=== PATIENT | female | born 1940 | race Caucasian/White ===

== ENCOUNTER 2017-08-13 09:12 | Emergency (ER) | payer MEDICARE, OTHER ==
--- NOTE | 2017-08-13 09:31 | ER Document Report ---
ED Medical Screen (RME) - General Chief Complaint: Rectal Bleeding Stated Complaint: RECTAL BLEEDING Time Seen by Provider: 08/13/17 09:22 Mode of Arrival: Ambulatory Information source: Patient TRAVEL OUTSIDE OF THE [place] IN LAST 30 DAYS: No - HPI Patient complains to provider of: Rectal bleeding Onset: This morning Notes: 08/13/17 09:30 Patient is a 77-year-old female presenting to the emergency room today complaining of rectal bleeding that started this morning, states she had 3 episodes of bleeding this morning, she is wearing a depends at this time because she continues to have some mild bleeding, she denies any rectal pain, no bowel movement and onset of symptoms, she does report a history of hemorrhoids - Related Data Allergies/Adverse Reactions: amlodipine [Amlodipine] Allergy (Verified 05/23/13 20:01) meclizine [Meclizine] Allergy (Verified 05/23/13 20:01) naproxen [From Naprosyn] Allergy (Verified 05/23/13 20:01) sulfamethoxazole [From Bactrim] Allergy (Verified 05/23/13 20:01) tramadol [Tramadol] Allergy (Verified 05/23/13 20:01) trimethoprim [From Bactrim] Allergy (Verified 05/23/13 20:01) Past Medical History - Past Medical History Cardiac Medical History: Reports: Hx Hypercholesterolemia, Hx Hypertension Pulmonary Medical History: Reports: Hx COPD, Hx Pneumonia Renal/ Medical History: Denies: Hx Peritoneal Dialysis GI Medical History: Reports: Hx Gastroesophageal Reflux Disease Psychiatric Medical History: Reports: Hx Anxiety, Hx Depression Past Surgical History: Reports: Hx Hysterectomy - Immunizations Hx Diphtheria, Pertussis, Tetanus Vaccination: Yes Physical Exam - Vital signs Vitals: Temp Pulse Resp BP Pulse Ox 98.9 F 77 16 211/95 H 94 08/13/17 09:15 08/13/17 09:15 08/13/17 09:15 08/13/17 09:15 08/13/17 09:15 Course - Vital Signs Vital signs: Temp Pulse Resp BP Pulse Ox 98.9 F 77 16 211/95 H 94 08/13/17 09:15 08/13/17 09:15 08/13/17 09:15 08/13/17 09:15 08/13/17 09:15
[2017-08-13 09:47] LABS: ABSOLUTE EOSINOPHILS # (AUTO) 0.1 10^3/uL (0.0-0.6); ABSOLUTE LYMPHOCYTES (AUTO) 0.9 10^3/uL (0.5-4.7); ABSOLUTE MONOCYTES (AUTO) 0.4 10^3/uL (0.1-1.4); BASOPHILS % (AUTO) 0.3 % (0-2); EOSINOPHILS % (AUTO) 0.9 % (0-6); HEMATOCRIT 38.7 % (36.0-47.0); HEMOGLOBIN 13.6 g/dL (12.0-15.5); HGB HCT DIFFERENCE 2.1; LYMPHOCYTES % (AUTO) 12.1 % (13-45); MEAN CORPUSCULAR VOLUME 92 fl (80-97); MONOCYTES % (AUTO) 5.9 % (3-13); RED BLOOD COUNT 4.24 10^6/uL (3.72-5.28); RED CELL DISTRIBUTION WIDTH 13.1 % (11.5-14.0); SEGMENTED NEUTROPHILS % (AUTO) 80.8 % (42-78); WHITE BLOOD COUNT 7.5 10^3/uL (4.0-10.5)
[2017-08-13 09:51] LABS: PARTIAL THROMBOPLASTIN TIME 26.4 SEC (23.5-35.8); PROTHROMBIN TIME 12.7 SEC (11.4-15.4)
[2017-08-13 10:01] LABS: ALANINE AMINOTRANSFERASE 26 U/L (9-52); ALBUMIN 4.3 g/dL (3.5-5.0); ALKALINE PHOSPHATASE 118 U/L (38-126); ANION GAP 10 (5-19); ASPARTATE AMINO TRANSFERASE 23 U/L (14-36); BILIRUBIN,DIRECT 0.3 mg/dL (0.0-0.4); BILIRUBIN,TOTAL 0.6 mg/dL (0.2-1.3); BLOOD UREA NITROGEN 14 mg/dL (7-20); CALCIUM 9.7 mg/dL (8.4-10.2); CARBON DIOXIDE 30 mmol/L (22-30); CHLORIDE 93 mmol/L (98-107); GLUCOSE 152 mg/dL (75-110); SODIUM 133.2 mmol/L (137-145); TOTAL PROTEIN 6.9 g/dL (6.3-8.2)
--- NOTE | 2017-08-13 10:01 | ER Document Report ---
ED General - General Chief Complaint: Rectal Bleeding Stated Complaint: RECTAL BLEEDING Time Seen by Provider: 08/13/17 09:22 Mode of Arrival: Ambulatory Information source: Patient Notes: 77-year-old female no previous rectal bleeding history of hemorrhoid who has been taking Goody powders for hip pain presents with complaints of rectal bleeding. Patient notes she had bowel movement this morning noted large clot dark stool. Patient denies any vomiting, patient had further bowel movement here with large clot, patient does note bright red rectal bleeding as well TRAVEL OUTSIDE OF THE [place] IN LAST 30 DAYS: No - HPI Onset: This morning Onset/Duration: Sudden Quality of pain: Cramping Severity: Mild Pain Level: 1 Associated symptoms: Other Exacerbated by: Denies Relieved by: Denies Similar symptoms previously: No Recently seen / treated by doctor: No - Related Data Allergies/Adverse Reactions: amlodipine [Amlodipine] Allergy (Verified 05/23/13 20:01) meclizine [Meclizine] Allergy (Verified 05/23/13 20:01) naproxen [From Naprosyn] Allergy (Verified 05/23/13 20:01) sulfamethoxazole [From Bactrim] Allergy (Verified 05/23/13 20:01) tramadol [Tramadol] Allergy (Verified 05/23/13 20:01) trimethoprim [From Bactrim] Allergy (Verified 05/23/13 20:01) Home Medications: Current Home Medications Albuterol Sulfate [Proair HFA] 2 puff IN Q6HP PRN 08/13/17 [History] Atorvastatin Calcium [Lipitor 20 mg Tablet] 20 mg PO DAILY 08/13/17 [History] Cyclobenzaprine HCl [Flexeril 5 mg Tablet] 5 mg PO QHS 08/13/17 [History] Fluoxetine HCl [Prozac 20 mg Capsule] 40 mg PO QHS 08/13/17 [History] Lisinopril/Hydrochlorothiazide [Lisinopril-Hctz 20-12.5 mg Tab] 1 tab PO DAILY 08/13/17 [History] Metoprolol Tartrate [Lopressor 50 mg Tablet] 50 mg PO Q12 08/13/17 [History] Omeprazole 40 mg PO DAILY 08/13/17 [History] Past Medical History - General Information source: Patient - Social History Smoking Status: Former Smoker Cigarette use (# per day): No Chew tobacco use (# tins/day): No Smoking Education Provided: No Frequency of alcohol use: None Drug Abuse: None Family History: Hypertension - Past Medical History Cardiac Medical History: Reports: Hx Hypercholesterolemia, Hx Hypertension Pulmonary Medical History: Reports: Hx COPD, Hx Pneumonia Renal/ Medical History: Denies: Hx Peritoneal Dialysis GI Medical History: Reports: Hx Gastroesophageal Reflux Disease Psychiatric Medical History: Reports: Hx Anxiety, Hx Depression Past Surgical History: Reports: Hx Hysterectomy - Immunizations Hx Diphtheria, Pertussis, Tetanus Vaccination: Yes Review of Systems - Review of Systems Notes: REVIEW OF SYSTEMS: CONSTITUTIONAL : Denies fever, chills, or sweats. Denies recent illness. EENT: Denies eye, ear, throat, or mouth pain or symptoms. Denies nasal or sinus congestion or discharge. Denies throat, tongue, or mouth swelling or difficulty swallowing. CARDIOVASCULAR: Denies chest pain. Denies palpitations or racing or irregular heart beat. Denies ankle edema. RESPIRATORY: Denies cough, cold, or chest congestion. Denies shortness of breath, difficulty breathing, or wheezing. GASTROINTESTINAL: Admits to rectal bleeding GENITOURINARY: Denies difficulty urinating, painful urination, burning, frequency, blood in urine, or discharge. FEMALE GENITOURINARY: Denies vaginal bleeding, heavy or abnormal periods, irregular periods. Denies vaginal discharge or odor. MUSCULOSKELETAL: Denies back or neck pain or stiffness. Denies joint pain or swelling. SKIN: Denies rash, lesions or sores. HEMATOLOGIC : Denies easy bruising or bleeding. LYMPHATIC: Denies swollen, enlarged glands. NEUROLOGICAL: Denies confusion or altered mental status. Denies passing out or loss of consciousness. Denies dizziness or lightheadedness. Denies headache. Denies weakness or paralysis or loss of use of either side. Denies problems with gait or speech. Denies sensory loss, numbness, or tingling. Denies seizures. PSYCHIATRIC: Denies anxiety or stress. Denies depression, suicidal ideation, or homicidal ideation. ALL OTHER SYSTEMS REVIEWED AND NEGATIVE. PHYSICAL EXAMINATION: GENERAL: Well-appearing, well-nourished and in no acute distress. HEAD: Atraumatic, normocephalic. EYES: Pupils equal round and reactive to light, extraocular movements intact, conjunctiva are normal. ENT: Nares patent, oropharynx clear without exudates. Moist mucous membranes. NECK: Normal range of motion, supple without lymphadenopathy LUNGS: Breath sounds clear to auscultation bilaterally and equal. No wheezes rales or rhonchi. HEART: Regular rate and rhythm without murmurs ABDOMEN: Soft, nontender, nondistended abdomen. No guarding, no rebound. No masses appreciated. Large amount of rectal bleeding noted Female : deferred Musculoskeletal: Normal range of motion, no pitting or edema. No cyanosis. NEUROLOGICAL: Cranial nerves grossly intact. Normal speech, normal gait. Normal sensory, motor exams PSYCH: Normal mood, normal affect. SKIN: Warm, Dry, normal turgor, no rashes or lesions noted. Dictation was performed using [employer] voice recognition software Physical Exam - Vital signs Vitals: Temp Pulse Resp BP Pulse Ox 98.9 F 77 16 211/95 H 94 08/13/17 09:15 08/13/17 09:15 08/13/17 09:15 08/13/17 09:15 08/13/17 09:15 Course - Re-evaluation Re-evalutation: 08/13/17 10:24 Hemoglobin stable at this time, IV access will be obtained CT will be performed expect admission for rectal bleeding Protonix order placed 08/13/17 12:00 ct consistant with sigmoid bleed, spoke with surgeon he does not do colonscopy, will transfer to [facility] at her request 08/13/17 12:[address] Simon for transfer 08/13/17 12:29 [facility] accepts transfer 08/13/17 14:21 Patient's repeat hemoglobin notes mild decrease 08/13/17 14:25 Patient refuses to go anywhere else will await transport - Vital Signs Vital signs: Temp Pulse Resp BP Pulse Ox 98.9 F 77 17 148/79 H 96 08/13/17 09:15 08/13/17 09:15 08/13/17 13:00 08/13/17 12:01 08/13/17 13:00 - Laboratory Result Diagrams: 08/13/17 12:50 08/13/17 09:40 Laboratory results interpreted by me: 08/13/17 08/13/17 09:40 09:40 Seg Neutrophils % 80.8 H Lymphocytes % 12.1 L Sodium 133.2 L Chloride 93 L Glucose 152 H Discharge - Discharge Clinical Impression: Hypertensive urgency, Anxiety GI bleed Qualifiers: GI bleed type/associated pathology: unspecified gastrointestinal hemorrhage type Qualified Code(s): K92.2 - Gastrointestinal hemorrhage, unspecified Condition: Stable Disposition: [facility]
[2017-08-13] MEDS ORDERED: PANTOPRAZOLE SODIUM 40 MG VIAL IV ONE (10:22)
[2017-08-13] MEDS ORDERED: PANTOPRAZOLE SODIUM 40 MG VIAL IV PRN (10:28)
--- NOTE | 2017-08-13 12:05 | RADIOLOGY REPORT (SQ) ---
EXAM DESCRIPTION: CT ABD/PELVIS WITH IV ONLY COMPLETED DATE/TIME: 08/13/2017 10:57 am REASON FOR STUDY: rectal bleeding COMPARISON: CT abdomen pelvis 09/09/2011, 05/11/2011 TECHNIQUE: CT scan of the abdomen and pelvis performed using helical scanning technique with dynamic intravenous contrast injection. No oral contrast. Images reviewed with lung, soft tissue, and bone windows. Reconstructed coronal and sagittal MPR images reviewed. Delayed images for evaluation of the urinary system also acquired. All images stored on PACS. All CT scanners at this facility use dose modulation, iterative reconstruction, and/or weight based d osing when appropriate to reduce radiation dose to as low as reasonably achievable (ALARA). [facility]: Dose Right [facility]: CareDose [facility]: Dose Right [facility]: Teradose 4D [facility]: [employer] CONTRAST TYPE AND DOSE: contrast/concentration: Isovue 370.00 mg/ml; Total Contrast Delivered: 65.0 ml; Total Saline Delivered: 65.0 ml RENAL FUNCTION: Creatinine 0.8 RADIATION DOSE: Up-to-date CT equipment and radiation dose reduction techniques were employed. CTDIv ol: 7.4 - 10.5 mGy. DLP: 888 mGy-cm.. LIMITATIONS: None. FINDINGS: Activity arterial extravasation of IV contrast is seen into the lumen of the distal descen ding/proximal sigmoid colon on axial images 65 through 70. This report was called to Dr. Camara LOWER CHEST: No significant findings. No nodules or infiltrates. LIVER: Normal size. No masses. No dilated ducts. SPLEEN: Normal size. No focal lesions. PANCREAS: No masses. No significant calcifications. No adjacent inflammation or peripancreatic fluid collections. Pancreatic duct not dilated. GALLBLADDER: No identified stones by CT criteria. No inflammatory changes to suggest cholecystitis. ADRENAL GLANDS: No significant masses or asymmetry. RIGHT KIDNEY AND URETER: No solid masses. Multiple cysts, largest is 2 cm right lower pole kidney. No significant calcifications. No hydronephrosis or hydroureter. LEFT KIDNEY AND URETER: No solid masses. Multiple 1 cm or less cortical cysts. No significant calci fications. No hydronephrosis or hydroureter. AORTA AND VESSELS: No aneurysm. No dissection. Renal arteries, SMA, celiac without stenosis. RETROPERITONEUM: No retroperitoneal adenopathy, hemorrhage or masses. BOWEL AND PERITONEAL CAVITY: No bowel obstruction. Descending and sigmoid colon diverticuli without CT signs of acute diverticulitis. APPENDIX: Surgically absent PELVIS: No mass. No free fluid. Normal bladder. Post hysterectomy ABDOMINAL WALL: No masses. No hernias. BONES: Degenerative changes lumbar spine. OTHER: No other significant finding. IMPRESSION: Active extravasation of contrast from GI bleeding in the distal descending/ proximal sig moid colon. TECHNICAL DOCUMENTATION: JOB ID: [id number] Quality ID # [id number]: Final reports with documentation of one or more dose reduction techniques (e.g., Au tomated exposure control, adjustment of the mA and/or kV according to patient size, use of iterative reconstruction technique) 2010 [employer]- All Rights Reserved
[2017-08-13] MEDS ORDERED: NORMAL SALINE 1000 ML 1,000 ML IV ONE (12:28)
[2017-08-13] MEDS ORDERED: LORAZEPAM INJ 2 MG/1 ML VIAL IV ONE (12:55)
[2017-08-13 12:59] LABS: ABSOLUTE BASOPHILS # (AUTO) 0.1 10^3/uL (0.0-0.2); ABSOLUTE EOSINOPHILS # (AUTO) 0.1 10^3/uL (0.0-0.6); ABSOLUTE LYMPHOCYTES (AUTO) 1.5 10^3/uL (0.5-4.7); ABSOLUTE MONOCYTES (AUTO) 0.8 10^3/uL (0.1-1.4); ABSOLUTE NEUT (AUTO) 7.8 10^3/uL (1.7-8.2); BASOPHILS % (AUTO) 0.7 % (0-2); EOSINOPHILS % (AUTO) 0.5 % (0-6); HEMATOCRIT 37.1 % (36.0-47.0); HEMOGLOBIN 12.9 g/dL (12.0-15.5); HGB HCT DIFFERENCE 1.6; LYMPHOCYTES % (AUTO) 14.8 % (13-45); MEAN CORPUSCULAR HEMOGLOBIN 31.8 pg (27.0-33.4); MEAN CORPUSCULAR HGB CONC 34.7 g/dL (32.0-36.0); MEAN CORPUSCULAR VOLUME 92 fl (80-97); MONOCYTES % (AUTO) 7.9 % (3-13); RED BLOOD COUNT 4.05 10^6/uL (3.72-5.28); SEGMENTED NEUTROPHILS % (AUTO) 76.1 % (42-78); WHITE BLOOD COUNT 10.2 10^3/uL (4.0-10.5)
[2017-08-13 17:27] LABS: ABSOLUTE EOSINOPHILS # (AUTO) 0.1 10^3/uL (0.0-0.6); ABSOLUTE LYMPHOCYTES (AUTO) 1.9 10^3/uL (0.5-4.7); ABSOLUTE MONOCYTES (AUTO) 0.8 10^3/uL (0.1-1.4); ABSOLUTE NEUT (AUTO) 6.5 10^3/uL (1.7-8.2); BASOPHILS % (AUTO) 0.5 % (0-2); EOSINOPHILS % (AUTO) 0.9 % (0-6); HGB HCT DIFFERENCE 1.4; LYMPHOCYTES % (AUTO) 20.3 % (13-45); MEAN CORPUSCULAR HEMOGLOBIN 31.7 pg (27.0-33.4); MEAN CORPUSCULAR HGB CONC 34.7 g/dL (32.0-36.0); MEAN CORPUSCULAR VOLUME 91 fl (80-97); MONOCYTES % (AUTO) 8.4 % (3-13); RED CELL DISTRIBUTION WIDTH 12.9 % (11.5-14.0); SEGMENTED NEUTROPHILS % (AUTO) 69.9 % (42-78); WHITE BLOOD COUNT 9.3 10^3/uL (4.0-10.5)
[2017-08-13 17:31] LABS: HEMOGLOBIN 10.8 g/dL (12.0-15.5)
[2017-08-13 20:33] LABS: HEMATOCRIT 30.5 % (36.0-47.0); HEMOGLOBIN 10.6 g/dL (12.0-15.5); HGB HCT DIFFERENCE 1.3; MEAN CORPUSCULAR HEMOGLOBIN 31.8 pg (27.0-33.4); MEAN CORPUSCULAR HGB CONC 34.8 g/dL (32.0-36.0); MEAN CORPUSCULAR VOLUME 92 fl (80-97); RED BLOOD COUNT 3.33 10^6/uL (3.72-5.28); RED CELL DISTRIBUTION WIDTH 12.9 % (11.5-14.0); WHITE BLOOD COUNT 9.5 10^3/uL (4.0-10.5)
--- NOTE | 2017-08-13 20:51 | ER Document Report ---
Doctor's Note Notes: 08/13/17 20:51 Transport is here for the patient at this time. Her most recent repeat hemoglobin shows that the drop in hemoglobin seems to have stabilized at this time. Patient's vital signs are stable, and she is stable for transport at this time.
[2017-08-13 20:56] VITALS: BP 140/68
== END 2017-08-13 21:08 | disposition short-term general hospital (02) ==
LOC: ER 09:12
DX: K92.2 Gastrointestinal hemorrhage, unspecified (principal); I16.0 Hypertensive urgency; F41.9 Anxiety disorder, unspecified; Z79.899 Other long term (current) drug therapy; Z87.891 Personal history of nicotine dependence
CPT/HCPCS: 99285; 96361; 96374; 96375; 86900; 86901; 36415; 86850; 85025; 85027; 85610; 85730; 80053; 74177; J2060; C9113; J7030; S0164

== ENCOUNTER 2018-08-23 17:20 | Inpatient (IN) | payer MEDICARE, OTHER ==
--- NOTE | 2018-08-23 18:16 | EKG REPORT ---
SEVERITY:- ABNORMAL ECG - SINUS RHYTHM PROBABLE LEFT ATRIAL ABNORMALITY LEFT BUNDLE BRANCH BLOCK : Confirmed by: Palak Marin MD 23-Aug-2018 18:16:14
[2018-08-23 18:30] LABS: APPEARANCE,URINE CLEAR; BILIRUBIN,URINE NEGATIVE (NEGATIVE); COLOR,URINE STRAW; GLUCOSE, URINE NEGATIVE (NEGATIVE); KETONES,URINE NEGATIVE (NEGATIVE); LEUKOCYTE ESTERASE,URINE NEGATIVE (NEGATIVE); NITRITE,URINE NEGATIVE (NEGATIVE); PROTEIN,URINE 30 mg/dL (NEGATIVE); UROBILINOGEN,URINE NEGATIVE mg/dL (<2.0)
[2018-08-23 18:34] LABS: ABSOLUTE EOSINOPHILS # (AUTO) 0.1 10^3/uL (0.0-0.6); ABSOLUTE LYMPHOCYTES (AUTO) 0.9 10^3/uL (0.5-4.7); ABSOLUTE MONOCYTES (AUTO) 0.6 10^3/uL (0.1-1.4); ABSOLUTE NEUT (AUTO) 9.1 10^3/uL (1.7-8.2); BASOPHILS % (AUTO) 0.3 % (0-2); EOSINOPHILS % (AUTO) 0.8 % (0-6); HEMATOCRIT 34.8 % (36.0-47.0); HEMOGLOBIN 12.1 g/dL (12.0-15.5); LYMPHOCYTES % (AUTO) 8.8 % (13-45); MEAN CORPUSCULAR HEMOGLOBIN 31.6 pg (27.0-33.4); MEAN CORPUSCULAR HGB CONC 34.8 g/dL (32.0-36.0); MEAN CORPUSCULAR VOLUME 91 fl (80-97); MONOCYTES % (AUTO) 5.7 % (3-13); PLATELET COUNT 264 10^3/uL (150-450); RED BLOOD COUNT 3.83 10^6/uL (3.72-5.28); RED CELL DISTRIBUTION WIDTH 13.1 % (11.5-14.0); SEGMENTED NEUTROPHILS % (AUTO) 84.4 % (42-78); TOTAL CELLS COUNTED % (AUTO) 100 %; WHITE BLOOD COUNT 10.7 10^3/uL (4.0-10.5)
[2018-08-23 18:39] LABS: ALANINE AMINOTRANSFERASE 34 U/L (9-52); ALBUMIN 3.7 g/dL (3.5-5.0); ALKALINE PHOSPHATASE 92 U/L (38-126); ANION GAP 9 (5-19); ASPARTATE AMINO TRANSFERASE 23 U/L (14-36); BILIRUBIN,DIRECT 0.1 mg/dL (0.0-0.4); BILIRUBIN,TOTAL 0.3 mg/dL (0.2-1.3); BLOOD UREA NITROGEN 19 mg/dL (7-20); CALCIUM 8.8 mg/dL (8.4-10.2); CARBON DIOXIDE 27 mmol/L (22-30); CHLORIDE 94 mmol/L (98-107); CREATINE KINASE 32 U/L (30-135); GLUCOSE 108 mg/dL (75-110); POTASSIUM 4.7 mmol/L (3.6-5.0); SODIUM 130.4 mmol/L (137-145); TOTAL PROTEIN 6.2 g/dL (6.3-8.2)
--- NOTE | 2018-08-23 18:43 | ER Document Report ---
ED Blood Pressure Problem - General Mode of Arrival: Medic Information source: Patient TRAVEL OUTSIDE OF THE [place] IN LAST 30 DAYS: No - HPI Patient complains to provider of: High blood pressure - 2 days Onset: Yesterday Onset/Duration: Gradual, Persistent, Worse Quality of pain: Cramping, Stabbing, Throbbing Severity: Moderate Pain Level: 3 Problem is: New problem Pt currently taking medication for problem: Yes Associated symptoms: Dizziness, Headache, Nausea, Weakness Similar symptoms previously: Yes Recently seen / treated by doctor: No <CARLOS ANGELES - Last Filed: 08/23/18 18:37> <ISSA SMART - Last Filed: 08/24/18 05:50> - General Chief Complaint: High Blood Pressure Stated Complaint: BLOOD PRESSURE ISSUES Time Seen by Provider: 08/23/18 17:33 Notes: Patient is a 78-year-old female who was brought to emergency room by EMS with a complaint of hypertensive crisis. Patient tells me that she is not been feeling well for the last couple of days. She is having increasing amount of headaches and usually when she gets a urinary tract infection her back hurts and she gets a headache as well. She started with some back pain couple days ago she thought she was getting urinary tract infection so she went to 1 of the local walk-in clinics today. They checked her urine was negative but they did a blood pressure on her and they found her to be hypertensive at 230/120. Actually her original number was 244/120. She was at 97% with respiratory rate of 20. Her temp was normal. Patient's blood sugar was 114. She complained of a headache that was frontal and seemed to drive itself and go to the back. Patient is on blood pressure medication metoprolol and lisinopril. She states that she sees some physician out of town [place] something like that I believe and she says she does not like him and he does not do anything for her. Said that she had hypertension one time before that was bad and gave her 2 pills and told her to go home and sleep. Patient states she does not understand where pressure is out of whack like that. But she is states that she is under a lot of stress right now her son is living with her they had an argument prior to her going to the doctor's office because she had to wake him up to telemetry and they argued about this. She denies any history of cardiac events he also states that when her headaches are this bad she gets dizziness with them to. Patient also states that when she gets these headaches she takes lots of BC powders. She says she takes too many. (CARLOS ANGELES) - Related Data Allergies/Adverse Reactions: amlodipine [Amlodipine] Allergy (Verified 05/23/13 20:01) meclizine [Meclizine] Allergy (Verified 05/23/13 20:01) naproxen [From Naprosyn] Allergy (Verified 05/23/13 20:01) sulfamethoxazole [From Bactrim] Allergy (Verified 05/23/13 20:01) tramadol [Tramadol] Allergy (Verified 05/23/13 20:01) trimethoprim [From Bactrim] Allergy (Verified 05/23/13 20:01) Past Medical History - General Information source: Patient - Social History Smoking Status: Former Smoker Smoking Education Provided: No Frequency of alcohol use: None Drug Abuse: None Family History: Reviewed & Not Pertinent, Hypertension - Past Medical History Cardiac Medical History: Reports: Hx Hypercholesterolemia, Hx Hypertension Pulmonary Medical History: Reports: Hx COPD, Hx Pneumonia Renal/ Medical History: Denies: Hx Peritoneal Dialysis GI Medical History: Reports: Hx Gastroesophageal Reflux Disease Psychiatric Medical History: Reports: Hx Anxiety, Hx Depression Past Surgical History: Reports: Hx Hysterectomy - Immunizations Hx Diphtheria, Pertussis, Tetanus Vaccination: Yes <CARLOS ANGELES - Last Filed: 08/23/18 18:37> Review of Systems - Review of Systems Constitutional: No symptoms reported EENT: No symptoms reported Cardiovascular: No symptoms reported Respiratory: No symptoms reported Gastrointestinal: No symptoms reported Genitourinary: No symptoms reported Female Genitourinary: No symptoms reported Musculoskeletal: No symptoms reported Skin: No symptoms reported Hematologic/Lymphatic: No symptoms reported Neurological/Psychological: No symptoms reported, Depression, Weakness, Headaches -: Yes All other systems reviewed and negative <CARLOS ANGELES - Last Filed: 08/23/18 18:37> Physical Exam - Vital signs Interpretation: Hypertensive - Patient also when she came in was still high with blood pressure of 30/110. - General General appearance: Appears well, Alert In distress: None - HEENT Head: Normocephalic, Atraumatic Eyes: Normal Cornea: Normal Extraocular movements intact: Yes Eyelashes: Normal Pupils: PERRL External canal: Normal. No: Blood in canal, Cerumen impaction, Erythema, Foreign body, Swollen Tympanic membrane: Normal. No: Bulging, Hemotympanum, Injected, Loss of landmarks, Perforation, Purulent effusion, Retracted, Serous effusion Nasal: Normal. No: Bloody discharge, Chanda deformity, Ecchymosis, Epistaxis, Purulent discharge, Septal hematoma, Swelling, Clear rhinorrhea Mucous membranes: Normal, Moist Pharynx: Normal. No: Blood in hypopharynx, Erythema, Exudate, Peritonsillar abscess, Post nasal drainage, Tonsillar hypertrophy, Potential airway comprom., Other Neck: Normal, Supple. No: Anterior cervical chain, Posterior cervical chain, Brudzinski, Carotid bruit, Kernig's, Lymphadenopathy, Meningismus, Neck mass, Shotty nodes, Subcutaneous emphysema, Thyroid nodule, Thyromegally - Respiratory Respiratory status: No respiratory distress Chest status: Nontender Breath sounds: Decreased air movement. No: Normal, Rales, Rhonchi, Stridor, Wheezing Chest palpation: Normal. No: Subcutaneous emphysema, Tender, Ecchymosis - Cardiovascular Rhythm: Regular Heart sounds: Normal auscultation - Abdominal Inspection: Normal. No: Caput medussa, Striae, Wounds, Morbidly Obese Distension: No distension. No: Distended, Tympanitic Bowel sounds: Normal Tenderness: Nontender. No: Tender, Lin's sign, Guarding, Rebound Organomegaly: No organomegaly - Back Back: Normal, Tender, Vertebra tenderness. No: Deformity/step-off, CVA tenderness - Extremities General upper extremity: Normal inspection, Nontender, Normal ROM, Normal strength General lower extremity: Normal inspection, Nontender, Normal ROM, Normal strength - Neurological Neuro grossly intact: Yes Cognition: Normal Orientation: AAOx4 [place] Coma Scale Eye Opening: Spontaneous Robert Coma Scale Verbal: Oriented [place] Coma Scale Motor: Obeys Commands Robert Coma Scale Total: 15 Speech: Normal - Skin Skin Temperature: Warm Skin Moisture: Dry Skin Color: Normal, [place] <CARLOS ANGELES - Last Filed: 08/23/18 18:37> <ISSA SMART - Last Filed: 08/24/18 05:50> - Vital signs Vitals: Resp 20 08/23/18 17:42 - Notes Notes: Is a well-nourished well-developed spunky 78-year-old. (CARLOS ANGELES) Course - Laboratory Result Diagrams: 08/23/18 18:10 08/23/18 18:10 <CARLOS ANGELES - Last Filed: 08/23/18 18:37> - Laboratory Result Diagrams: 08/23/18 18:10 08/24/18 03:04 <ISSA SMART - Last Filed: 08/24/18 05:50> - Re-evaluation Re-evalutation: 08/23/18 18:49 Originally my goal was to get patient's blood pressure down however her EKG comes back and she has a left bundle branch block which we cannot prove is old or new. So given that it is not any history to go by patient does not know then we have to treat this as a new bundle branch block. We will finish her workup and will talk to the hospitalist about admission. (CARLOS ANGELES) Report obtained from Carlos Angeles PA-C at shift change. Discussed Pt. presentation, EKG changes (new LBBB), and labs with Cvt Tech Dr. Johnson who recommends CTA chest/abd/pelvis and repeat Trop in 3 hours. Stated to admit if Trop is negative, transfer if Trop is positive. Discussed case with Dr. Delacruz, hospitalist who will agree with Dr. Johnson and admit the patient for chest pain rule out. (ISSA SMART) - Vital Signs Vital signs: Temp Pulse Resp BP Pulse Ox 98.3 F 64 15 187/71 H 96 08/24/18 03:25 08/24/18 03:36 08/24/18 03:25 08/24/18 03:36 08/24/18 03:25 - Laboratory Laboratory results interpreted by me: 08/23/18 08/23/18 08/23/18 17:00 18:10 18:10 WBC 10.7 H Hct 34.8 L Seg Neutrophils % 84.4 H Lymphocytes % 8.8 L Absolute Neutrophils 9.1 H Sodium 130.4 L Chloride 94 L Total Protein 6.2 L Urine Protein 30 H Discharge <CARLOS ANGELES - Last Filed: 08/23/18 18:37> - Discharge Admitting Provider: [facility] Admitted: Telemetry <ISSA SMART - Last Filed: 08/24/18 05:50> - Discharge Clinical Impression: Acute electrocardiogram changes Hypertension Qualifiers: Hypertension type: unspecified Qualified Code(s): I10 - Essential (primary) hypertension Condition: Stable Disposition: ADMITTED INPATIENT
[2018-08-23 18:51] LABS: CREATINE KINASE MB 1.51 ng/mL (<4.55)
[2018-08-23 18:55] LABS: TROPONIN I < 0.012 ng/mL
--- NOTE | 2018-08-23 19:19 | RADIOLOGY REPORT (SQ) ---
EXAM DESCRIPTION: CT HEAD WITHOUT COMPLETED DATE/TIME: 08/23/2018 7:08 pm REASON FOR STUDY: pagan COMPARISON: 05/09/2016 TECHNIQUE: Axial images acquired through the brain without intravenous contrast. Images reviewed wi th bone, brain and subdural windows. Additional sagittal and coronal reconstructions were generated. Images stored on PACS. All CT scanners at this facility use dose modulation, iterative reconstruction, and/or weight based d osing when appropriate to reduce radiation dose to as low as reasonably achievable (ALARA). [facility]: Dose Right [facility]: CareDose [facility]: Dose Right [facility]: Teradose 4D [facility]: Smart [employer] RADIATION DOSE: CT Rad equipment meets quality standard of care and radiation dose reduction techniq ues were employed. CTDIvol: 53.2 mGy. DLP: 1044 mGy-cm. mGy. LIMITATIONS: None. FINDINGS: VENTRICLES: Normal size and contour. CEREBRUM: No masses. No hemorrhage. No midline shift. No evidence for acute infarction. Few scatte red areas of low density in the white matter most likely chronic small vessel ischemic changes. CEREBELLUM: No masses. No hemorrhage. No alteration of density. No evidence for acute infarction. EXTRAAXIAL SPACES: No fluid collections. No masses. ORBITS AND GLOBE: No intra- or extraconal masses. Normal contour of globe without masses. CALVARIUM: No fracture. PARANASAL SINUSES: No fluid or mucosal thickening. SOFT TISSUES: No mass or hematoma. OTHER: No other significant finding. IMPRESSION: MILD CHRONIC MICROVASCULAR ISCHEMIA. NO ACUTE IMAGING FINDINGS IN THE BRAIN. EVIDENCE OF ACUTE STROKE: NO. COMMENT: Quality ID # [id number]: Final reports with documentation of one or more dose reduction techniques (e.g., Automated exposure control, adjustment of the mA and/or kV according to patient size, use of iterative reconstruction technique) TECHNICAL DOCUMENTATION: JOB ID: [id number] [employer]- All Rights Reserved Reading location - IP/workstation name: [email or web address]
--- NOTE | 2018-08-23 19:23 | RADIOLOGY REPORT (SQ) ---
EXAM DESCRIPTION: CHEST 2 VIEWS COMPLETED DATE/TIME: 08/23/2018 7:15 pm REASON FOR STUDY: HEADACHE COMPARISON: 08/16/2016 EXAM PARAMETERS: NUMBER OF VIEWS: two views TECHNIQUE: Digital Frontal and Lateral radiographic views of the chest acquired. RADIATION DOSE: NA LIMITATIONS: none FINDINGS: LUNGS AND PLEURA: No opacities, masses or pneumothorax. No pleural effusion. MEDIASTINUM AND HILAR STRUCTURES: No masses or contour abnormalities. HEART AND VASCULAR STRUCTURES: Heart normal size. No evidence for failure. BONES: No acute findings. HARDWARE: None in the chest. OTHER: No other significant finding. IMPRESSION: NO ACUTE RADIOGRAPHIC FINDING IN THE CHEST. TECHNICAL DOCUMENTATION: JOB ID: [id number] [employer]- All Rights Reserved Reading location - IP/workstation name: [email or web address]
--- NOTE | 2018-08-23 21:17 | RADIOLOGY REPORT (SQ) ---
CT ANGIOGRAPHY OF THE CHEST, ABDOMEN, AND PELVIS HISTORY: Chest pain. Back pain. COMPARISON: None. TECHNIQUE: CT scan of the chest, abdomen, and pelvis. This exam was performed according to our departmental dose-optimization program, which includes automated exposure control, adjustment of the mA and/or kV according to patient size and/or use of iterative reconstruction technique. 3-D MIPS reformats were obtained. FINDINGS: No acute pulmonary embolism is seen. No aortic aneurysm or dissection. No mediastinal, hilar, or axillary adenopathy is seen. No pericardial effusion. No consolidation, pleural effusion, or pneumothorax is identified. Liver, gallbladder, spleen, pancreas, and adrenal glands are unremarkable. The kidneys are normal without hydronephrosis. Bilateral renal cysts. No bowel obstruction. Colonic diverticulosis without evidence of diverticulitis. No free air or free fluid. Small fat-containing umbilical hernia. Degenerative changes of the spine. Compression fracture of T4, age-indeterminate. IMPRESSION: No aortic aneurysm or dissection. No pulmonary embolism. Compression fracture of T4, age-indeterminate.
[2018-08-23] MEDS ORDERED: LACTULOSE SYRUP 20 GM/30 ML UDCUP PO ONE (22:35)
[2018-08-23] MEDS ORDERED: FLUOXETINE HCL 20 MG CAPSULE PO ONE (23:00)
[2018-08-23] MEDS ORDERED: METOPROLOL TARTRATE 50 MG TABLET PO ONE (23:00)
[2018-08-23] MEDS ORDERED: ATORVASTATIN CALCIUM 20 MG TABLET PO ONE (23:00)
[2018-08-24 03:29] LABS: ANION GAP 9 (5-19); BLOOD UREA NITROGEN 15 mg/dL (7-20); CALCIUM 9.1 mg/dL (8.4-10.2); CARBON DIOXIDE 30 mmol/L (22-30); CHLORIDE 96 mmol/L (98-107); CREATINE KINASE 37 U/L (30-135); GLUCOSE 85 mg/dL (75-110); POTASSIUM 4.4 mmol/L (3.6-5.0); SODIUM 134.7 mmol/L (137-145); TRIGLYCERIDES 132 mg/dL (<150)
[2018-08-24] MEDS: ENALAPRILAT DIHYDRATE INJ/PF 1.25 MG/1 ML SDV IV PRN (03:36)
[2018-08-24 03:40] LABS: DIRECT LDL 73 mg/dL (<100)
[2018-08-24 03:41] LABS: CREATINE KINASE MB 1.62 ng/mL (<4.55); TROPONIN I < 0.012 ng/mL
[2018-08-24] MEDS: ACETAMINOPHEN 325 MG TABLET PO PRN ×3 (04:20→17:08)
[2018-08-24] MEDS ORDERED: TRAZODONE HCL 50 MG TABLET PO PRN (05:25)
--- NOTE | 2018-08-24 05:34 | PDOC H&P ---
History of Present Illness Admission Date/PCP: 08/23/18 22:46 ANA LAURA PLASCENCIA MD Patient complains of: High blood pressure, chest pain History of Present Illness: JERAMY LEBLANC is a 78 year old female with a past medical history of anxiety , hypertension and sciatic back pain. She presents to the emergency room after 2 days of worsening back pain which prompted her to a walk-in medical clinic where she was found to have a blood pressure of 244/120. She received clonidine 0.2 resulting in a systolic blood pressure reduction into 170s. She denies recent change of medications and is otherwise felt well. She reports a preceding upsetting conversation with her son followed by headache and chest pain prompting referral to the emergency room. Chest pain was 5 out of 5 lasting 15 minutes left-sided, retrosternal, nonradiating not associated with shortness of breath, palpitations, nausea or vomiting. In the emergency room she has a new left bundle branch block, negative CTA chest, abdomen and CT head. She is referred to the hospitalist for admission. Past Medical History Cardiac Medical History: Reports: Hyperlipidema, Hypertension Pulmonary Medical History: Reports: Chronic Obstructive Pulmonary Disease (COPD) , Pneumonia GI Medical History: Reports: Gastroesophageal Reflux Disease Musculoskeltal Medical History: Reports: Other - Sciatic back pain Psychiatric Medical History: Reports: Depression, General Anxiety Disorder Past Surgical History Past Surgical History: Reports: Hysterectomy Social History Information Source: Patient Lives with: Family Smoking Status: Former Smoker Frequency of Alcohol Use: None Hx Recreational Drug Use: Yes Hx Prescription Drug Abuse: No - Advance Directive Resuscitation Status: Full Code Family History Family History: Hypertension Parental Family History Reviewed: Yes Children Family History Reviewed: Yes Sibling(s) Family History Reviewed.: Yes Medication/Allergy Home Medications: Albuterol Sulfate [Proair HFA] 2 puff IN Q6HP PRN 08/13/17 Atorvastatin Calcium [Lipitor 20 mg Tablet] 20 mg PO DAILY 08/13/17 Cyclobenzaprine HCl [Flexeril 5 mg Tablet] 5 mg PO QHS 08/13/17 Fluoxetine HCl [Prozac 20 mg Capsule] 40 mg PO QHS 08/13/17 Lisinopril/Hydrochlorothiazide [Lisinopril-Hctz 20-12.5 mg Tab] 1 tab PO DAILY 08/13/17 Metoprolol Tartrate [Lopressor 50 mg Tablet] 50 mg PO Q12 08/13/17 Omeprazole 40 mg PO DAILY 08/13/17 Allergies/Adverse Reactions: amlodipine [Amlodipine] Allergy (Verified 05/23/13 20:01) meclizine [Meclizine] Allergy (Verified 05/23/13 20:01) naproxen [From Naprosyn] Allergy (Verified 05/23/13 20:01) sulfamethoxazole [From Bactrim] Allergy (Verified 05/23/13 20:01) tramadol [Tramadol] Allergy (Verified 05/23/13 20:01) trimethoprim [From Bactrim] Allergy (Verified 05/23/13 20:01) Review of Systems Constitutional: ABSENT: chills, fever(s), headache(s), weight gain, weight loss Eyes: ABSENT: visual disturbances Ears: ABSENT: hearing changes Cardiovascular: ABSENT: chest pain, dyspnea on exertion, edema, orthropnea, palpitations Respiratory: ABSENT: cough, hemoptysis Gastrointestinal: ABSENT: abdominal pain, constipation, diarrhea, hematemesis, hematochezia, nausea, vomiting Genitourinary: ABSENT: dysuria, hematuria Musculoskeletal: ABSENT: joint swelling Integumentary: ABSENT: rash, wounds Neurological: ABSENT: abnormal gait, abnormal speech, confusion, dizziness, focal weakness, syncope Psychiatric: ABSENT: anxiety, depression, homidical ideation, suicidal ideation Endocrine: ABSENT: cold intolerance, heat intolerance, polydipsia, polyuria Hematologic/Lymphatic: ABSENT: easy bleeding, easy bruising Physical Exam Vital Signs: Temp Pulse Resp BP Pulse Ox 98.3 F 64 15 187/71 H 96 08/24/18 03:25 08/24/18 03:36 08/24/18 03:25 08/24/18 03:36 08/24/18 03:25 Intake & Output 08/22/18 08/23/18 08/24/18 11:59 11:59 11:59 Weight 59.6 kg General appearance: PRESENT: no acute distress, well-developed, well-nourished Head exam: PRESENT: atraumatic, normocephalic Eye exam: PRESENT: conjunctiva pink, EOMI, PERRLA. ABSENT: scleral icterus Ear exam: PRESENT: normal external ear exam Mouth exam: PRESENT: moist, tongue midline Neck exam: ABSENT: carotid bruit, JVD, lymphadenopathy, thyromegaly Respiratory exam: PRESENT: clear to auscultation joey. ABSENT: rales, rhonchi, wheezes Cardiovascular exam: PRESENT: RRR. ABSENT: diastolic murmur, rubs, systolic murmur Pulses: PRESENT: normal dorsalis pedis pul Vascular exam: PRESENT: normal capillary refill GI/Abdominal exam: PRESENT: normal bowel sounds, soft. ABSENT: distended, guarding, mass, organolmegaly, rebound, tenderness Rectal exam: PRESENT: deferred Extremities exam: PRESENT: full ROM. ABSENT: calf tenderness, clubbing, pedal edema Musculoskeletal exam: PRESENT: other - Reproducible back pain with palpation to the right gluteus. Neurological exam: PRESENT: alert, awake, oriented to person, oriented to place , oriented to time, oriented to situation, CN II-XII grossly intact. ABSENT: motor sensory deficit Psychiatric exam: PRESENT: appropriate affect, normal mood. ABSENT: homicidal ideation, suicidal ideation Skin exam: PRESENT: dry, intact, warm. ABSENT: cyanosis, rash Results Laboratory Results: 08/24/18 03:04 08/24/18 03:04 Sodium 134.7 L Potassium 4.4 Chloride 96 L Carbon Dioxide 30 Anion Gap 9 BUN 15 Creatinine 0.65 Est GFR ( Amer) > 60 Est GFR (Non-Af Amer) > 60 Glucose 85 Calcium 9.1 Triglycerides 132 Cholesterol 146.30 LDL Cholesterol Direct 73 VLDL Cholesterol 26.0 HDL Cholesterol 46 08/24/18 08/24/18 03:04 03:04 Creatine Kinase 37 CK-MB (CK-2) 1.62 Troponin I < 0.012 Impressions: Head CT 08/23/18 18:19 IMPRESSION: MILD CHRONIC MICROVASCULAR ISCHEMIA. NO ACUTE IMAGING FINDINGS IN THE BRAIN. EVIDENCE OF ACUTE STROKE: NO. Chest X-Ray 08/23/18 18:52 IMPRESSION: NO ACUTE RADIOGRAPHIC FINDING IN THE CHEST. Chest/Abdomen CTA 08/23/18 20:17 IMPRESSION: No aortic aneurysm or dissection. No pulmonary embolism. Compression fracture of T4, age-indeterminate. Abdomen/Pelvis CTA 08/23/18 20:18 IMPRESSION: No aortic aneurysm or dissection. No pulmonary embolism. Compression fracture of T4, age-indeterminate. Assessment & Plan - Diagnosis (1) Hypertensive urgency Is this a current diagnosis for this admission?: Yes Plan: IV hydralazine as needed, anxiolytic as needed. (2) Acute electrocardiogram changes Is this a current diagnosis for this admission?: Yes Plan: Chest pain care set, cardiac enzymes, TSH, follow-up cardiac stress test ordered. (3) Anxiety Is this a current diagnosis for this admission?: Yes Plan: Prozac and as needed trazodone - Time Time Spent: 50 to 70 Minutes
[2018-08-24] MEDS: HYDRALAZINE HCL INJ/PF 20 MG/1 ML SDV IV PRN (08:30)
[2018-08-24] MEDS: LANSOPRAZOLE 30 MG TAB.RAP.DR PO SCH (09:03)
[2018-08-24] MEDS ORDERED: HYDROCHLOROTHIAZIDE 12.5 MG TABLET PO SCH (10:00)
[2018-08-24] MEDS ORDERED: PROMETHAZINE HCL INJ 25 MG/1 ML VIAL IV ONE (11:00)
[2018-08-24] MEDS: DOCUSATE SODIUM 100 MG CAPSULE PO SCH (11:14)
[2018-08-24] MEDS: ASPIRIN 81 MG TABLET, ENT COATED PO SCH (11:21)
[2018-08-24] MEDS: LISINOPRIL 10 MG TABLET PO SCH (11:22)
[2018-08-24] MEDS: METOPROLOL TARTRATE 50 MG TABLET PO SCH ×2 (11:22→22:16)
[2018-08-24] MEDS: ENOXAPARIN SODIUM INJ 60 MG/0.6 ML DISP.SYRIN SUBCUT SCH ×2 (11:23→22:17)
[2018-08-24 12:30] LABS: TROPONIN I < 0.012 ng/mL
[2018-08-24] MEDS ORDERED: REGADENOSON INJ 0.4 MG/5 ML DISP.SYRIN IV ONE (12:37)
--- NOTE | 2018-08-24 15:13 | DRAGON STRESS TEST REPORT ---
INTRAVENOUS LEXISCAN CARDIOLITE STRESS TEST USING SINGLE PHOTON EMMISION COMPUTERIZED TOMOGRAPHIC. DATE OF PROCEDURE: August 24, 2018, INDICATION : Chest pain CARDIAC RISK FACTORS: Hypertension, dyslipidemia RESTING EKG: Sinus rhythm with left bundle branch block STRESS EKG: No significant ST segment changes noted with LexiScan bolus REASON FOR TERMINATION: Protocol. PROCEDURE REPORT: Baseline heart rate 75 beats per minute with blood pressure of 197/94. Patient had no significant complaints. Patient was bolused with Lexiscan 0.4 mg intravenously followed by saline bolus. Heart rate at 2 minutes post bolus 96 with a blood pressure of 176/103. 3 minutes post bolus heart rate 105 with blood pressure of 193/100. No significant EKG changes were noted. Patient had no significant complaints during the procedure or postprocedure. CONCLUSIONS: Normal EKG and hemodynamic response to IV LexiScan. NUCLEAR DATA: At rest the patient was given 10.82 millicuries of technetium 99 sestamibi injected intravenously. As per protocol rest gated SPECT images were obtained. On day of stress test, the patient was given intravenous LexiScan at a dose of 0.4 mg in 5 mL intravenously, followed by flush with normal saline. Subsequently the stress dose of 30.4 millicuries of technetium 99 sestamibi was injected intravenously. As per protocol stress gated images were obtained. NUCLEAR INTERPRETATION: Both raw and processed data were used for interpretation. Visual, qualitative, computer-generated quantitative data was used. There was good myocardial uptake of technetium compound. Motion artifact and soft tissue attenuations were noted. Increased visceral uptake was noted. No definitive areas of transient perfusion defect noted, No definitive areas of fixed perfusion defect or scars noted. EKG gated imaging showed LV EF at 64 %, rest and stress gated EF similar visually. T. I D. ratio was 1.04. Lung heart ratio noted to be within normal limits 0.22. No significant extracardiac and abnormal radiotracer activities were noted. RV free wall uptake was noted to be WNL. IMPRESSION: Also refer to comments under nuclear interpretation. Also test results needs to be interpreted in the context of pretest probability. 1. No definitive areas of transient perfusion defect noted. 2. There is no definitive scintigraphic evidence of myocardial infarction/scar. 3. EKG gated imaging shows left ventricular ejection fraction of approx. 64 %. 4. Clinical correlation requested as worse disease and or balanced ischemia could be missed. In approximately 10% of the cases Lexiscan may not cause adequate vasodilatory stress. RECOMMENDATIONS: Aggressive risk factor modification and medical management. Further evaluation may be needed if continued symptoms or other high risk indicators are noted on clinical evaluation. Close cardiology follow-up is also recommended. Clinical correlation with echocardiogram derived ejection fraction. Inability to exercise by itself can lead to increased cardiovascular event risks. Consider cardiology consultation and or follow-up if clinically indicated. I am available for cardiology evaluation and consultation if requested by the geological manager, unless patient already has a auto heater mechanic. Dr. Nathalie Johnson. MRCP Board certified in cardiology and sleep medicine. Board certified in nuclear cardiology, adult echocardiography. HUMAIRA
[2018-08-24 16:03] LABS: CREATINE KINASE MB 1.63 ng/mL (<4.55)
[2018-08-24 16:07] LABS: TROPONIN I < 0.012 ng/mL
--- NOTE | 2018-08-24 17:21 | PDOC PROGRESS REPORT ---
Subjective Progress Note for:: 08/24/18 Subjective:: The patient is a 78-year-old female with a past medical history of anxiety, hypertension, and sciatic back pain who was admitted 08/23/18 for Hypertensive urgency and chest pain rule out. The patient was seen on morning rounds with her son present. She is found resting in bed comfortably on room air. The patient had just returned from her stress test; subsequently began vomiting. She has been provided IV Phenergan and at this time is alert and oriented x4 but repetitive and forgetful, with slightly slurred speech. Per nursing and family, the patient was clear of speech and thought immediately prior to receiving the Phenergan. The patient endorsed an episode of left chest discomfort following injection for the stress test. She reports that the pain resolved immediately after vomiting. She denies associated dizziness, dyspnea, back pain. She denies fever, chills, headache, dizziness, current chest pain, dyspnea, orthopnea, abdominal pain, diarrhea or constipation. She has no questions or concerns at this time. No concerns per nursing. Reason For Visit: HTN URGENCY CHEST PAIN Physical Exam Vital Signs: Temp Pulse Resp BP Pulse Ox 98 F 73 16 158/72 H 97 08/24/18 10:59 08/24/18 14:00 08/24/18 10:59 08/24/18 14:00 08/24/18 10:59 Intake & Output 08/23/18 08/24/18 08/25/18 06:59 06:59 06:59 Weight 59.6 kg General appearance: PRESENT: no acute distress, cooperative - Pleasant, well- developed, well-nourished Head exam: PRESENT: atraumatic, normocephalic Eye exam: PRESENT: conjunctiva pink, EOMI, PERRLA. ABSENT: scleral icterus Ear exam: PRESENT: normal external ear exam Mouth exam: PRESENT: moist, tongue midline Neck exam: ABSENT: carotid bruit, JVD, lymphadenopathy, thyromegaly Respiratory exam: PRESENT: clear to auscultation joey, symmetrical, unlabored. ABSENT: rales, rhonchi, wheezes Cardiovascular exam: PRESENT: RRR. ABSENT: diastolic murmur, rubs, systolic murmur Pulses: PRESENT: normal dorsalis pedis pul Vascular exam: PRESENT: normal capillary refill GI/Abdominal exam: PRESENT: normal bowel sounds, soft. ABSENT: distended, guarding, mass, organolmegaly, rebound, tenderness Rectal exam: PRESENT: deferred Extremities exam: PRESENT: full ROM. ABSENT: calf tenderness, clubbing, pedal edema Neurological exam: PRESENT: alert, awake, oriented to person, oriented to place , oriented to time, oriented to situation, CN II-XII grossly intact. ABSENT: motor sensory deficit Psychiatric exam: PRESENT: appropriate affect, normal mood. ABSENT: homicidal ideation, suicidal ideation Skin exam: PRESENT: dry, intact, warm. ABSENT: cyanosis, rash Results Laboratory Results: 08/24/18 03:04 08/24/18 03:04 Sodium 134.7 L Potassium 4.4 Chloride 96 L Carbon Dioxide 30 Anion Gap 9 BUN 15 Creatinine 0.65 Est GFR ( Amer) > 60 Est GFR (Non-Af Amer) > 60 Glucose 85 Calcium 9.1 Triglycerides 132 Cholesterol 146.30 LDL Cholesterol Direct 73 VLDL Cholesterol 26.0 HDL Cholesterol 46 08/24/18 08/24/18 08/24/18 03:04 03:04 11:42 Creatine Kinase 37 CK-MB (CK-2) 1.62 1.60 Troponin I < 0.012 < 0.012 08/24/18 14:51 Creatine Kinase CK-MB (CK-2) 1.63 Troponin I < 0.012 Impressions: Head CT 08/23/18 18:19 IMPRESSION: MILD CHRONIC MICROVASCULAR ISCHEMIA. NO ACUTE IMAGING FINDINGS IN THE BRAIN. EVIDENCE OF ACUTE STROKE: NO. Chest X-Ray 08/23/18 18:52 IMPRESSION: NO ACUTE RADIOGRAPHIC FINDING IN THE CHEST. Chest/Abdomen CTA 08/23/18 20:17 IMPRESSION: No aortic aneurysm or dissection. No pulmonary embolism. Compression fracture of T4, age-indeterminate. Abdomen/Pelvis CTA 08/23/18 20:18 IMPRESSION: No aortic aneurysm or dissection. No pulmonary embolism. Compression fracture of T4, age-indeterminate. Assessment & Plan - Diagnosis (1) Hypertensive urgency Is this a current diagnosis for this admission?: Yes Plan: Improved; although remains hypertensive with blood pressures 150/70s The patient's home medications have been resumed; metoprolol 50 mg twice daily and lisinopril 20 mg daily. She has been placed on hydrochlorothiazide 12.5 mg daily. IV hydralazine available for blood pressure control. (2) Left bundle branch block Is this a current diagnosis for this admission?: Yes Plan: The left bundle branch block noted on EKG. Previous EKG from 2012 was normal sinus rhythm. Patient cannot recall if she has had an EKG done in recent past. She does deny echocardiogram or stress testing in the past. Troponins negative x4. Lipid panel is acceptable. TSH is normal. Stress test was completed; no evidence of acute reversible ischemia. Echocardiogram is pending; ordered per Dr. Johnson's request. Cardiology has been consulted; appreciate their evaluation recommendations. (3) Hypertension Qualifiers: Hypertension type: unspecified Qualified Code(s): I10 - Essential (primary ) hypertension Is this a current diagnosis for this admission?: Yes Plan: As above. (4) Anxiety Is this a current diagnosis for this admission?: Yes Plan: Continue home dose Prozac. Have added trazodone 50 mg every 12 hours as needed. - Time Time Spent with patient: 25-34 minutes Medications reviewed and adjusted accordingly: Yes Anticipated discharge: Home Within: within 24 hours
[2018-08-24] MEDS: PROMETHAZINE HCL INJ 25 MG/1 ML VIAL IV PRN (18:39)
[2018-08-24] MEDS ORDERED: MORPHINE SULFATE 10 MG/ML INJ IV ONE (19:00)
[2018-08-24] MEDS ORDERED: FLUOXETINE HCL 20 MG CAPSULE PO SCH (22:00)
[2018-08-24] MEDS: ATORVASTATIN CALCIUM 20 MG TABLET PO SCH (22:16)
--- NOTE | 2018-08-24 23:08 | XCELERA REPORT ---
[address] [address] Transthoracic Echocardiogram Report Name: JERAMY LEBLANC Age: 78 yrs Gender: Female : 1940 Patient Status: Inpatient Patient Location: [address] [place], [place] [address] Study Date: 08/24/2018 05:44 PM Height: 61 in Weight: 131 lb BSA: 1.6 m2 Procedure: A two-dimensional transthoracic echocardiogram with color flow and Doppler was performed. Study Quality: Fair. Reason For Study: New LBBB History: New LBBB. Ordering Physician: JESSICA WOMACK Performed By: Mey Luu Interpretation Summary The left ventricle is normal in size. There is mild concentric left ventricular hypertrophy. LV EF is > than 60% Left ventricular systolic function is normal. Doppler measurements suggest impaired left ventricular relaxation, which is associated with grade I/IV or mild diastolic dysfunction The left ventricular wall motion is normal. There is no thrombus. There is no ventricular septal defect visualized. The right ventricle is grossly normal size. The right ventricle is not well visualized secondary to technical limitations The right atrium is normal. The left atrial size is normal. The interatrial septum is intact with no evidence for an atrial septal defect. There is mild mitral annular calcification. There is mild mitral leaflet calcification. There is no evidence of mitral valve prolapse. There is no vegetation seen on the mitral valve. There is no mitral valve stenosis. There is a mild amount of mitral regurgitation There is no aortic valvular vegetation. There is no aortic valve stenosis There is a trace amount of aortic regurgitation The tricuspid valve is not well visualized secondary to technical limitations There is no tricuspid stenosis. There is a mild amount of tricuspid regurgitation There is moderate pulmonary hypertension by echo RVSP is 49 to 54 mm of Hg , with RA mean of 5 to 10. There is no pulmonic valvular stenosis. There is a trace amount of pulmonic regurgitation The aortic root is normal size. The inferior vena cava appeared normal and decreased > 50% with respiration (RAP 5-10 mmHg) There is no pericardial effusion. MMode/2D Measurements & Calculations RVDd: 2.6 cm LVIDd: 3.5 cm FS: 29.6 % Ao root diam: 2.3 cm IVSd: 1.2 cm LVIDs: 2.5 cm EDV(Teich): 52.3 ml Ao root area: 4.3 cm2 LVPWd: 1.1 cm ESV(Teich): 22.2 ml LA dimension: 2.9 cm EF(Teich): 57.6 % Doppler Measurements & Calculations MV E max good: MV P1/2t max good: Ao V2 max: LV V1 max P.5 cm/sec 100.4 cm/sec 123.5 cm/sec 4.7 mmHg MV A max good: MV P1/2t: 58.5 msec Ao max P.1 mmHgLV V1 max: 152.4 cm/sec MVA(P1/2t): 3.8 cm2 108.6 cm/sec MV E/A: 0.55 MV dec slope: 502.5 cm/sec2 MV dec time: 0.22 sec TV V2 max: PA V2 max: PI end-d good: TR max good: 85.5 cm/sec 88.2 cm/sec 109.3 cm/sec 332.6 cm/sec TV max P.9 mmHgPA max P.1 mmHg TR max P.2 mmHg MV P1/2t-pr_phl: 58.5 msec Left Ventricle The left ventricle is normal in size. There is mild concentric left ventricular hypertrophy. LV EF is > than 60%. Left ventricular systolic function is normal. Doppler measurements suggest impaired left ventricular relaxation, which is associated with grade I/IV or mild diastolic dysfunction. The left ventricular wall motion is normal. There is no thrombus. There is no ventricular septal defect visualized. Right Ventricle The right ventricle is grossly normal size. The right ventricle is not well visualized secondary to technical limitations. Atria The right atrium is normal. The left atrial size is normal. The interatrial septum is intact with no evidence for an atrial septal defect. Mitral Valve There is mild mitral annular calcification. There is mild mitral leaflet calcification. There is no evidence of mitral valve prolapse. There is no vegetation seen on the mitral valve. There is no mitral valve stenosis. There is a mild amount of mitral regurgitation. Aortic Valve There is no aortic valvular vegetation. There is no aortic valve stenosis. There is no LVOT obstruction. There is a trace amount of aortic regurgitation. Tricuspid Valve The tricuspid valve is not well visualized secondary to technical limitations. There is no tricuspid stenosis. There is a mild amount of tricuspid regurgitation. There is moderate pulmonary hypertension by echo. RVSP is 49 to 54 mm of Hg , with RA mean of 5 to 10. Pulmonic Valve There is no pulmonic valvular stenosis. There is a trace amount of pulmonic regurgitation. Great Vessels The aortic root is normal size. The inferior vena cava appeared normal and decreased > 50% with respiration (RAP 5-10 mmHg). Effusions There is no pericardial effusion. : JESSICA WOMACK > Palak Marin
[2018-08-25] MEDS: HYDRALAZINE HCL INJ/PF 20 MG/1 ML SDV IV PRN (03:56)
[2018-08-25] MEDS: ACETAMINOPHEN 325 MG TABLET PO PRN ×2 (04:37→11:03)
[2018-08-25] MEDS: PROMETHAZINE HCL INJ 25 MG/1 ML VIAL IV PRN (04:45)
[2018-08-25 06:12] LABS: HEMATOCRIT 37.9 % (36.0-47.0); MEAN CORPUSCULAR HEMOGLOBIN 31.2 pg (27.0-33.4); MEAN CORPUSCULAR HGB CONC 34.4 g/dL (32.0-36.0); MEAN CORPUSCULAR VOLUME 91 fl (80-97); PLATELET COUNT 246 10^3/uL (150-450); RED BLOOD COUNT 4.17 10^6/uL (3.72-5.28); RED CELL DISTRIBUTION WIDTH 13.4 % (11.5-14.0); WHITE BLOOD COUNT 9.5 10^3/uL (4.0-10.5)
[2018-08-25 06:33] LABS: ANION GAP 11 (5-19); BLOOD UREA NITROGEN 12 mg/dL (7-20); CALCIUM 9.2 mg/dL (8.4-10.2); CARBON DIOXIDE 28 mmol/L (22-30); CHLORIDE 90 mmol/L (98-107); GLUCOSE 99 mg/dL (75-110); POTASSIUM 3.7 mmol/L (3.6-5.0)
[2018-08-25] MEDS: NORMAL SALINE 1000 ML 1,000 ML IV PRN ×2 (08:55→20:47)
[2018-08-25] MEDS: LANSOPRAZOLE 30 MG TAB.RAP.DR PO SCH (09:29)
[2018-08-25] MEDS: METOPROLOL TARTRATE 50 MG TABLET PO SCH ×2 (09:29→22:01)
[2018-08-25] MEDS: ASPIRIN 81 MG TABLET, ENT COATED PO SCH (09:29)
[2018-08-25] MEDS: DOCUSATE SODIUM 100 MG CAPSULE PO SCH (09:29)
[2018-08-25] MEDS: LISINOPRIL 10 MG TABLET PO SCH (09:30)
[2018-08-25] MEDS: ENOXAPARIN SODIUM INJ 60 MG/0.6 ML DISP.SYRIN SUBCUT SCH ×2 (09:31→22:01)
[2018-08-25] MEDS ORDERED: ONDANSETRON HCL INJ/PF 4 MG/2 ML SDV IV PRN (11:40)
[2018-08-25] MEDS: ENALAPRILAT DIHYDRATE INJ/PF 1.25 MG/1 ML SDV IV PRN (11:48)
--- NOTE | 2018-08-25 12:07 | PDOC PROGRESS REPORT ---
Subjective Progress Note for:: 08/25/18 Subjective:: Patient seems to be doing better with gradual improvement. However patient still has some nausea. She had a episode of vomiting during stress test yesterday pt is denying any chest arm or neck discomfort. Patient denying any PND, orthopnea. Patient denied any sustained palpitations, dizziness, syncope, near syncope. Patient denying any fever chills. Patient denying any other significant discomfort. Patient is maintaining sinus rhythm. Review of systems: Rest review of systems negative. Medications: Medications have been reviewed. Reason For Visit: HTN URGENCY CHEST PAIN Physical Exam Vital Signs: Temp Pulse Resp BP Pulse Ox 98.2 F 64 14 186/102 H 94 08/24/18 23:25 08/25/18 11:48 08/24/18 23:25 08/25/18 11:48 08/24/18 23:25 Intake & Output 08/24/18 08/25/18 08/26/18 06:59 06:59 06:59 Intake Total 831 Output Total 850 Balance -19 Weight 59.6 kg 58.8 kg Exam: GENERAL: well-nourished and in no acute distress. Alert and oriented x3 HEAD: Atraumatic, normocephalic. EYES: Pupils equal round and reactive to light, extraocular movements intact, sclera anicteric, conjunctiva are normal. ENT: TMs normal, nares patent, oropharynx clear without exudates. Moist mucous membranes. No oral ulcerations or bleeding gums noted NECK: supple without lymphadenopathy. Trachea is central. No cervical or axillary lymphadenopathy noted. Carotids are 2+, JVD WNL LUNGS: Respiration seems nonlabored, no significant accessory muscle action noted. Breath sounds clear to auscultation bilaterally and equal noted. No wheezes rales or rhonchi noted. No significant dullness noted on percussion. CHEST: Palpation of the chest wall shows no significant chest wall tenderness. 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 ABDOMEN: Soft, no significant tenderness appreciated, normoactive bowel sounds. No guarding, no rebound. No rigidity noted . No masses appreciated. EXTREMITIES: Pedal pulses are 1-2+, no calf tenderness noted. No clubbing or cyanosis. negative pedal edema noted NEUROLOGICAL: Focused neurological exam showed no significant neurologic deficit. Normal speech, no focal weakness appreciated. PSYCH: Normal mood, normal affect. Judgment and insight within normal limits. SKIN: No significant ecchymosis, skin is noted to be warm. MUSCULOSKELETAL EXAM: No significant acute joint swelling noted. Results Laboratory Results: 08/25/18 05:32 08/25/18 05:32 08/25/18 08/25/18 05:32 05:32 WBC 9.5 RBC 4.17 Hgb 13.0 Hct 37.9 MCV 91 MCH 31.2 MCHC 34.4 RDW 13.4 Plt Count 246 Sodium 129.0 L Potassium 3.7 Chloride 90 L Carbon Dioxide 28 Anion Gap 11 BUN 12 Creatinine 0.55 Est GFR ( Amer) > 60 Est GFR (Non-Af Amer) > 60 Glucose 99 Calcium 9.2 08/24/18 08/24/18 08/24/18 03:04 03:04 11:42 Creatine Kinase 37 CK-MB (CK-2) 1.62 1.60 Troponin I < 0.012 < 0.012 08/24/18 14:51 Creatine Kinase CK-MB (CK-2) 1.63 Troponin I < 0.012 EKG Comments: Sinus rhythm with left bundle branch block. Impressions: Head CT 08/23/18 18:19 IMPRESSION: MILD CHRONIC MICROVASCULAR ISCHEMIA. NO ACUTE IMAGING FINDINGS IN THE BRAIN. EVIDENCE OF ACUTE STROKE: NO. Chest X-Ray 08/23/18 18:52 IMPRESSION: NO ACUTE RADIOGRAPHIC FINDING IN THE CHEST. Chest/Abdomen CTA 08/23/18 20:17 IMPRESSION: No aortic aneurysm or dissection. No pulmonary embolism. Compression fracture of T4, age-indeterminate. Abdomen/Pelvis CTA 08/23/18 20:18 IMPRESSION: No aortic aneurysm or dissection. No pulmonary embolism. Compression fracture of T4, age-indeterminate. Assessment & Plan - Diagnosis (1) Hypertension Qualifiers: Hypertension type: essential hypertension Qualified Code(s): I10 - Essential (primary) hypertension Is this a current diagnosis for this admission?: Yes (2) Left bundle branch block Is this a current diagnosis for this admission?: Yes (3) Hypertensive urgency Is this a current diagnosis for this admission?: Yes (4) Nausea and vomiting Qualifiers: Vomiting type: unspecified Vomiting Intractability: unspecified Qualified Code(s): R11.2 - Nausea with vomiting, unspecified Is this a current diagnosis for this admission?: Yes - Notes Notes: Nuclear stress test was negative for pharmacologic stress-induced ischemia. 2D echo results reviewed. Shows normal LVEF. No significant valvular abnormalities noted. Patient main problem is nausea and vomiting today. May consider GI evaluation. Patient noted to be stable. Chest pain: Patient is elderly lady, is also noted to have new onset left bundle branch block, at least new since 2016, therefore high probability of underlying CAD, this was evaluated further with a nuclear stress test and a 2D echocardiogram. Nuclear stress test was negative for any pharmacologic stress- induced ischemia. 2D echo shows normal LVEF. 2D echo was reviewed by another caustic purification operator. Nuclear stress test results were discussed with the patient. Patient informed that occasionally single-vessel disease or balanced ischemia could be missed. Patient to report any recurrence of chest pain. Left bundle branch block pattern: Presumably new since 2016. This is felt to be most likely related to chronic hypertensive heart disease with LVH. Generalized anxiety disorder: Patient will benefit from SSRI agent and also anxiolytic. Currently on some medications. Hypertensive urgency: This is a significant problems. Could be related to anxiety panic disorder, underlying sleep apnea syndrome, renal artery stenosis etc. may need to be ruled out. At this point recommend blood pressure goal of 140/90 or less. Hospitalist currently managing hypertension. - Time Time with patient: Greater than 35 minutes - Results of nuclear stress test and 2D echocardiogram discussed with the patient. Patient claims chest pain is improved. This was evaluated with a nuclear stress test. Nuclear stress test was negative for any significant areas of ischemia or any significant areas of scar. The nuclear stress test is felt to be relatively low risk. Patient informed that occasionally single-vessel disease and balanced ischemia could be missed. Patient advised aggressive risk factor modification and medical therapy. Patient informed that further evaluation may become necessary if symptoms worsens or there is a development of new symptoms indicative of angina or angina equivalent symptom. Medications reviewed and adjusted accordingly: Yes
[2018-08-25] MEDS ORDERED: KETOROLAC TROMETHAMINE INJ/PF 30 MG/1 ML SDV IV ONE (12:15)
[2018-08-25 15:05] LABS: ANION GAP 15 (5-19); BLOOD UREA NITROGEN 12 mg/dL (7-20); CALCIUM 9.4 mg/dL (8.4-10.2); CARBON DIOXIDE 27 mmol/L (22-30); CHLORIDE 86 mmol/L (98-107); GLUCOSE 130 mg/dL (75-110); POTASSIUM 3.9 mmol/L (3.6-5.0); SODIUM 127.5 mmol/L (137-145)
[2018-08-25] MEDS ORDERED: CLONIDINE HCL 0.1 MG TABLET PO ONE (15:52)
--- NOTE | 2018-08-25 16:20 | PDOC PROGRESS REPORT ---
Subjective Progress Note for:: 08/25/18 Subjective:: The patient is a 78-year-old female with a past medical history of anxiety, hypertension, and sciatic back pain who was admitted 08/23/18 for Hypertensive urgency and chest pain rule out. The patient was seen on morning rounds. She is found resting in bed comfortably on room air. She reports a frontal and occipital headache today that is not worsened by bright lights/sounds or associated with nausea or vomiting. Otherwise, she reports that she is feeling well and denies fever, chills, dizziness, chest pain, palpitations, dyspnea, orthopnea, abdominal pain , nausea/vomiting, diarrhea or constipation. She has no new questions or concerns at this time. No concerns per nursing. Reason For Visit: HTN URGENCY CHEST PAIN Physical Exam Vital Signs: Temp Pulse Resp BP Pulse Ox 98.2 F 62 15 186/102 H 96 08/25/18 12:00 08/25/18 14:00 08/25/18 12:00 08/25/18 12:00 08/25/18 12:00 Intake & Output 08/24/18 08/25/18 08/26/18 06:59 06:59 06:59 Intake Total 831 237 Output Total 850 420 Balance -19 -183 Weight 59.6 kg 58.8 kg General appearance: PRESENT: no acute distress, cooperative, well-developed, well-nourished Head exam: PRESENT: atraumatic, normocephalic Eye exam: PRESENT: conjunctiva pink, EOMI, PERRLA. ABSENT: scleral icterus Ear exam: PRESENT: normal external ear exam Mouth exam: PRESENT: moist, tongue midline Neck exam: ABSENT: carotid bruit, JVD, lymphadenopathy, thyromegaly Respiratory exam: PRESENT: clear to auscultation joey, symmetrical, unlabored. ABSENT: rales, rhonchi, wheezes Cardiovascular exam: PRESENT: RRR, +S1, +S2. ABSENT: diastolic murmur, rubs, systolic murmur Pulses: PRESENT: normal dorsalis pedis pul Vascular exam: PRESENT: normal capillary refill GI/Abdominal exam: PRESENT: normal bowel sounds, soft. ABSENT: distended, guarding, mass, organolmegaly, rebound, tenderness Rectal exam: PRESENT: deferred Extremities exam: PRESENT: full ROM. ABSENT: calf tenderness, clubbing, pedal edema Neurological exam: PRESENT: alert, awake, oriented to person, oriented to place , oriented to time, oriented to situation, CN II-XII grossly intact, other - Slightly forgetful/repetative. ABSENT: motor sensory deficit Psychiatric exam: PRESENT: appropriate affect, normal mood. ABSENT: homicidal ideation, suicidal ideation Skin exam: PRESENT: dry, intact, warm. ABSENT: cyanosis, rash Results Laboratory Results: 08/25/18 05:32 08/25/18 14:17 08/25/18 08/25/18 08/25/18 05:32 05:32 14:17 WBC 9.5 RBC 4.17 Hgb 13.0 Hct 37.9 MCV 91 MCH 31.2 MCHC 34.4 RDW 13.4 Plt Count 246 Sodium 129.0 L 127.5 L Potassium 3.7 3.9 Chloride 90 L 86 L Carbon Dioxide 28 27 Anion Gap 11 15 BUN 12 12 Creatinine 0.55 0.55 Est GFR ( Amer) > 60 > 60 Est GFR (Non-Af Amer) > 60 > 60 Glucose 99 130 H Calcium 9.2 9.4 08/24/18 08/24/18 08/24/18 03:04 03:04 11:42 Creatine Kinase 37 CK-MB (CK-2) 1.62 1.60 Troponin I < 0.012 < 0.012 08/24/18 14:51 Creatine Kinase CK-MB (CK-2) 1.63 Troponin I < 0.012 Impressions: Head CT 08/23/18 18:19 IMPRESSION: MILD CHRONIC MICROVASCULAR ISCHEMIA. NO ACUTE IMAGING FINDINGS IN THE BRAIN. EVIDENCE OF ACUTE STROKE: NO. Chest X-Ray 08/23/18 18:52 IMPRESSION: NO ACUTE RADIOGRAPHIC FINDING IN THE CHEST. Chest/Abdomen CTA 08/23/18 20:17 IMPRESSION: No aortic aneurysm or dissection. No pulmonary embolism. Compression fracture of T4, age-indeterminate. Abdomen/Pelvis CTA 08/23/18 20:18 IMPRESSION: No aortic aneurysm or dissection. No pulmonary embolism. Compression fracture of T4, age-indeterminate. Assessment & Plan - Diagnosis (1) Hypertensive urgency Is this a current diagnosis for this admission?: Yes Plan: Continues to have elevated blood pressures; 186/102 Continue home dose metoprolol 50 mg twice daily (HR 60s) Increase lisinopril to 40 mg daily. Clonidine 0.1 mg twice daily. One time now order provided r/t BP as above. May consider transdermal patch at discharge. HCTZ discontinued r/t hyponatremia. Attempted to verify amlodipine allergy; unfortunately patient can not recall reaction to medication. IV hydralazine or Vasotec available for blood pressure control. (2) Left bundle branch block Is this a current diagnosis for this admission?: Yes Plan: The left bundle branch block noted on EKG. Previous EKG from 2011 was normal sinus rhythm. Patient cannot recall if she has had an EKG done in recent past. She does deny echocardiogram or stress testing in the past. Troponins negative x4. Lipid panel is acceptable. TSH is normal. Stress test was completed; no evidence of acute reversible ischemia. Echocardiogram demonstrated LVEF >60% with mild diastolic dysfunction. Cardiology has been consulted; appreciate their evaluation recommendations. (3) Hypertension Qualifiers: Hypertension type: essential hypertension Qualified Code(s): I10 - Essential (primary) hypertension Is this a current diagnosis for this admission?: Yes Plan: As above. (4) Anxiety Is this a current diagnosis for this admission?: Yes Plan: Prozac dose decreased from 40 to 20 mg daily secondary to hyponatremia. Trazadone discontinued r/t hyponatremia. Consider trial of Buspar twice daily. (5) Nausea and vomiting Qualifiers: Vomiting type: unspecified Vomiting Intractability: unspecified Qualified Code(s): R11.2 - Nausea with vomiting, unspecified Is this a current diagnosis for this admission?: Yes Plan: Pt initially reported nausea and vomiting related to Cardiolite injection; responded will to phenergan. However, she continues to have mild nausea without emesis today. As needed Zofran for symptom management. Diet as tolerated. (6) Headache Qualifiers: Headache type: unspecified Headache chronicity pattern: acute headache Is this a current diagnosis for this admission?: Yes Plan: Pt reports frontal and occipital headache, unlike her normal headaches, not associated with photophobia or phonophobia. She requests BC powders. Likely secondary to HTN. Neuroexam is otherwise unremarkable. However, given the associated nausea/ vomiting, forgetfulness/repetitiveness (initially presumed to be related to phenergan, though last dose ~12 hours ago), hyponatremia, and severe hypertension, will obtain a stat non-contrasted head CT. BP management as above. Antiemetics and analgesics for symptom control. (7) Hyponatremia Is this a current diagnosis for this admission?: Yes Plan: Na is trending down; 134.7--> 12.09--> 127.5 Pt has been placed on NS. Medications reviewed and discontinued/decreased as able. Urine Osmo and Na pending. Serial chemistries. - Time Time Spent with patient: 15-24 minutes Medications reviewed and adjusted accordingly: Yes Anticipated discharge: Home - Inpatient Certification Based on my medical assessment, after consideration of the patient's comorbidities, presenting symptoms, or acuity I expect that the services needed warrant INPATIENT care.: Yes I certify that my determination is in accordance with my understanding of Medicare's requirements for reasonable and necessary INPATIENT services [42 CFR 412.3e].: Yes Medical Necessity: Need Close Monitoring Due to Risk of Patient Decompensation - Worsening hyponatremia and persistent severe hypertension, Need For IV Fluids , Need For Continuous Telemetry Monitoring
[2018-08-25 16:26] LABS: APPEARANCE,URINE CLEAR; BILIRUBIN,URINE NEGATIVE (NEGATIVE); COLOR,URINE YELLOW; GLUCOSE, URINE NEGATIVE (NEGATIVE); KETONES,URINE TRACE mg/dL (NEGATIVE); LEUKOCYTE ESTERASE,URINE NEGATIVE (NEGATIVE); NITRITE,URINE NEGATIVE (NEGATIVE); PROTEIN,URINE 30 mg/dL (NEGATIVE); UROBILINOGEN,URINE NEGATIVE mg/dL (<2.0)
--- NOTE | 2018-08-25 17:24 | RADIOLOGY REPORT (SQ) ---
EXAM DESCRIPTION: CT HEAD WITHOUT COMPLETED DATE/TIME: 08/25/2018 4:51 pm REASON FOR STUDY: Severe HTN, POZO, N/V K92.1 MELENA R07.89 OTHER CHEST PAIN G45.9 TRANSIENT CEREBR AL ISCHEMIC ATTACK, UNSPECIFIED COMPARISON: 08/23/2018 TECHNIQUE: Axial images acquired through the brain without intravenous contrast. Images reviewed wi th bone, brain and subdural windows. Additional sagittal and coronal reconstructions were generated. Images stored on PACS. All CT scanners at this facility use dose modulation, iterative reconstruction, and/or weight based d osing when appropriate to reduce radiation dose to as low as reasonably achievable (ALARA). [facility]: Dose Right [facility]: CareDose [facility]: Dose Right [facility]: Teradose 4D [facility]: Friendemic RADIATION DOSE: CT Rad equipment meets quality standard of care and radiation dose reduction techniq ues were employed. CTDIvol: 48.5 mGy. DLP: 879 mGy-cm. mGy. LIMITATIONS: None. FINDINGS: VENTRICLES: Prominent. CEREBRUM: No masses. No hemorrhage. No midline shift. Areas of low density in the white matter mos t likely due to chronic micro-vascular ischemic change. No evidence for acute infarction. CEREBELLUM: No masses. No hemorrhage. No alteration of density. No evidence for acute infarction. EXTRAAXIAL SPACES: Mild age-related involutional change. No fluid collections. No masses. ORBITS AND GLOBE: No intra- or extraconal masses. Normal contour of globe without masses. CALVARIUM: No fracture. PARANASAL SINUSES: Mucosal thickening left maxillary sinus. SOFT TISSUES: No mass or hematoma. OTHER: No other significant finding. IMPRESSION: MILD CHRONIC CHANGES OF ATROPHY AND MICROVASCULAR ISCHEMIA. NO ACUTE PROCESS. EVIDENCE OF ACUTE STROKE: NO. TECHNICAL DOCUMENTATION: JOB ID: [id number] Quality ID # [id number]: Final reports with documentation of one or more dose reduction techniques (e.g., Au tomated exposure control, adjustment of the mA and/or kV according to patient size, use of iterative reconstruction technique) 2010 [employer]- All Rights Reserved Reading location - IP/workstation name: [email or web address]
[2018-08-25] MEDS ORDERED: CLONIDINE HCL 0.1 MG TABLET PO SCH (22:00)
[2018-08-25] MEDS: FLUTICASONE NASAL SPRAY 50 MCG/SPRY 120 SPRAY/16 GM NASL SCH (22:00)
[2018-08-25] MEDS: ATORVASTATIN CALCIUM 20 MG TABLET PO SCH (22:01)
[2018-08-25] MEDS: HYDRALAZINE HCL 25 MG TABLET PO SCH (22:01)
[2018-08-25] MEDS: FLUOXETINE HCL 20 MG CAPSULE PO SCH (22:02)
[2018-08-25 22:45] LABS: ANION GAP 8 (5-19); BLOOD UREA NITROGEN 14 mg/dL (7-20); CALCIUM 8.2 mg/dL (8.4-10.2); CARBON DIOXIDE 26 mmol/L (22-30); CHLORIDE 91 mmol/L (98-107); GLUCOSE 108 mg/dL (75-110); POTASSIUM 3.4 mmol/L (3.6-5.0)
[2018-08-26] MEDS: HYDRALAZINE HCL INJ/PF 20 MG/1 ML SDV IV PRN (01:09)
[2018-08-26] MEDS: NORMAL SALINE 1000 ML 1,000 ML IV PRN (05:43)
[2018-08-26] MEDS: HYDRALAZINE HCL 25 MG TABLET PO SCH ×3 (05:43→21:47)
[2018-08-26 05:44] LABS: ANION GAP 9 (5-19); BLOOD UREA NITROGEN 12 mg/dL (7-20); CALCIUM 8.4 mg/dL (8.4-10.2); CARBON DIOXIDE 28 mmol/L (22-30); CHLORIDE 94 mmol/L (98-107); GLUCOSE 104 mg/dL (75-110); POTASSIUM 3.9 mmol/L (3.6-5.0); SODIUM 130.6 mmol/L (137-145)
[2018-08-26 05:54] LABS: TROPONIN I 0.014 ng/mL
[2018-08-26] MEDS ORDERED: FUROSEMIDE 20 MG TABLET PO ONE (09:15)
[2018-08-26] MEDS ORDERED: (PENDING PHARMACY ID) (Lisinopril [Zestril] 40 MG) PO SCH (10:00)
[2018-08-26] MEDS: LISINOPRIL 10 MG TABLET PO SCH (10:12)
[2018-08-26] MEDS: FLUTICASONE NASAL SPRAY 50 MCG/SPRY 120 SPRAY/16 GM NASL SCH ×2 (10:12→21:46)
[2018-08-26] MEDS: DOCUSATE SODIUM 100 MG CAPSULE PO SCH (10:14)
[2018-08-26] MEDS: ASPIRIN 81 MG TABLET, ENT COATED PO SCH (10:14)
[2018-08-26] MEDS: ENOXAPARIN SODIUM INJ 60 MG/0.6 ML DISP.SYRIN SUBCUT SCH ×2 (10:14→21:49)
[2018-08-26] MEDS: LANSOPRAZOLE 30 MG TAB.RAP.DR PO SCH (10:14)
[2018-08-26] MEDS: METOPROLOL TARTRATE 50 MG TABLET PO SCH (10:14)
--- NOTE | 2018-08-26 14:47 | PDOC CONSULTATION ---
Consultation Consult Date: 08/24/18 Attending physician:: MARCI POWELL Consult reason:: Chest pain History of Present Illness Admission Date/PCP: 08/23/18 22:46 ANA LAURA PLASCENCIA MD Patient complains of: Chest pain and severe hypertension History of Present Illness: JERAMY LEBLANC is a 78 year old female with a past medical history of anxiety , hypertension and sciatic back pain. She presents to the emergency room after 2 days of worsening back pain which prompted her to a walk-in medical clinic where she was found to have a blood pressure of 244/120. She received clonidine 0.2 resulting in a systolic blood pressure reduction into 170s. She denies recent change of medications and is otherwise felt well. She reports a preceding upsetting conversation with her son followed by headache and chest pain prompting referral to the emergency room. Chest pain was 5 out of 5 lasting 15 minutes left-sided, retrosternal, nonradiating not associated with shortness of breath, palpitations, nausea or vomiting. In the emergency room she has a new left bundle branch block, negative CTA chest, abdomen and CT head. She is referred to the hospitalist for admission. This history obtained by the hospitalist was reviewed and confirmed. Patient was scheduled for a nuclear stress test and a 2D echocardiogram. Patient denied any recurrence of chest pain since admission. Her blood pressure has been somewhat difficult to control even at home. Patient denied any prior history of myocardial infarction, angina, congestive heart failure, strokes or mini strokes. Patient has significant problems with sleep but denied ever having tested with his sleep study. Past Medical History Cardiac Medical History: Reports: Hyperlipidema, Hypertension Pulmonary Medical History: Reports: Chronic Obstructive Pulmonary Disease (COPD) , Pneumonia GI Medical History: Reports: Gastroesophageal Reflux Disease Musculoskeltal Medical History: Reports: Other - Sciatic back pain Psychiatric Medical History: Reports: Depression, General Anxiety Disorder Past Surgical History Past Surgical History: Reports: Hysterectomy Social History Information Source: Patient Lives with: Family Smoking Status: Former Smoker Frequency of Alcohol Use: None Hx Recreational Drug Use: Yes Hx Prescription Drug Abuse: No - Advance Directive Resuscitation Status: Full Code Surrogate healthcare decision maker:: Patient's son is the surrogate decision-maker Family History Family History: Hypertension Parental Family History Reviewed: Yes Children Family History Reviewed: Yes Sibling(s) Family History Reviewed.: Yes Medication/Allergy Home Medications: Alendronate Sodium [Fosamax 70 mg Tablet] 70 mg PO CASTILLO 08/24/18 Atorvastatin Calcium [Lipitor 20 mg Tablet] 20 mg PO QHS 08/24/18 Fluoxetine HCl [Prozac 20 mg Capsule] 40 mg PO DAILY 08/24/18 Lisinopril [Zestril] 20 mg PO DAILY 08/24/18 Metoprolol Tartrate [Lopressor 50 mg Tablet] 50 mg PO BID 08/24/18 Multivitamin [Daily Multiple Vitamin] 1 tab PO DAILY 08/24/18 Omeprazole 40 mg PO DAILY 08/24/18 Allergies/Adverse Reactions: amlodipine [Amlodipine] Allergy (Verified 05/23/13 20:01) meclizine [Meclizine] Allergy (Verified 05/23/13 20:01) naproxen [From Naprosyn] Allergy (Verified 05/23/13 20:01) sulfamethoxazole [From Bactrim] Allergy (Verified 05/23/13 20:01) tramadol [Tramadol] Allergy (Verified 05/23/13 20:01) trimethoprim [From Bactrim] Allergy (Verified 05/23/13 20:01) Review of Systems Review of Systems: Please see history of present illness and past medical history as wall. Constitutional: No fever or chills reported. Head : No recent chronic headaches, recent head injury. Eyes: No recent eye pain, diplopia, redness, discharge, acute visual changes. Ears: No recent chronic ear pain, acute hearing loss, ear discharge. Oral cavity: No recent ulcerations, bleeding, oral cavity discomfort. Neck: No recent acute neck pain reported. Hematologic: No recent easy bruising or bleeding. Lymphatic: No recent lymph node enlargement reported. Cardiovascular system review: See history of present illness. Respiratory system review: No hemoptysis or blood clots in the lungs reported. Mild Shortness of breath on exertion Gastrointestinal system review: Negative for any recent acute hematemesis, melena. Genitourinary system review: No recent acute or chronic hematuria, flank pain, UTI etc. reported. Skin system review: Negative for any recent abnormal bruising, no rash, no pruritus reported. Neurologic: No prior history of strokes, mini strokes, seizure disorder. Psychologic: No history of major psychosis or major depression reported. Musculoskeletal: Minor aches and pains reported. No acute joint swelling reported. Endocrine: No recent polyuria, polydipsia, recent heat or cold intolerance. Physical Exam Vital Signs: Temp Pulse Resp BP Pulse Ox 98 F 73 16 158/72 H 97 08/24/18 10:59 08/24/18 14:00 08/24/18 10:59 08/24/18 14:00 08/24/18 10:59 Intake & Output 08/23/18 08/24/18 08/25/18 06:59 06:59 06:59 Intake Total 831 Output Total 850 Balance -19 Weight 59.6 kg Exam: GENERAL: well-nourished and in no acute distress. Alert and oriented x3 HEAD: Atraumatic, normocephalic. EYES: Pupils equal round and reactive to light, extraocular movements intact, sclera anicteric, conjunctiva are normal. ENT: TMs normal, nares patent, oropharynx clear without exudates. Moist mucous membranes. No oral ulcerations or bleeding gums noted NECK: supple without lymphadenopathy. Trachea is central. No cervical or axillary lymphadenopathy noted. Carotids are 2+, JVD WNL LUNGS: Respiration seems nonlabored, no significant accessory muscle action noted. Breath sounds clear to auscultation bilaterally and equal noted. No wheezes rales or rhonchi noted. No significant dullness noted on percussion. CHEST: Palpation of the chest wall shows no significant chest wall tenderness. 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 ABDOMEN: Soft, no significant tenderness appreciated, normoactive bowel sounds. No guarding, no rebound. No rigidity noted . No masses appreciated. EXTREMITIES: Pedal pulses are 1-2+, no calf tenderness noted. No clubbing or cyanosis. negative pedal edema noted NEUROLOGICAL: Focused neurological exam showed no significant neurologic deficit. Normal speech, no focal weakness appreciated. PSYCH: Normal mood, normal affect. Judgment and insight within normal limits. SKIN: No significant ecchymosis, skin is noted to be warm. MUSCULOSKELETAL EXAM: No significant acute joint swelling noted. Results Laboratory Results: 08/24/18 03:04 08/24/18 03:04 Sodium 134.7 L Potassium 4.4 Chloride 96 L Carbon Dioxide 30 Anion Gap 9 BUN 15 Creatinine 0.65 Est GFR ( Amer) > 60 Est GFR (Non-Af Amer) > 60 Glucose 85 Calcium 9.1 Triglycerides 132 Cholesterol 146.30 LDL Cholesterol Direct 73 VLDL Cholesterol 26.0 HDL Cholesterol 46 08/24/18 08/24/18 08/24/18 03:04 03:04 11:42 Creatine Kinase 37 CK-MB (CK-2) 1.62 1.60 Troponin I < 0.012 < 0.012 08/24/18 14:51 Creatine Kinase CK-MB (CK-2) 1.63 Troponin I < 0.012 EKG Comments: Shows sinus rhythm with left bundle branch block pattern. Impressions: Head CT 08/23/18 18:19 IMPRESSION: MILD CHRONIC MICROVASCULAR ISCHEMIA. NO ACUTE IMAGING FINDINGS IN THE BRAIN. EVIDENCE OF ACUTE STROKE: NO. Chest X-Ray 08/23/18 18:52 IMPRESSION: NO ACUTE RADIOGRAPHIC FINDING IN THE CHEST. Chest/Abdomen CTA 08/23/18 20:17 IMPRESSION: No aortic aneurysm or dissection. No pulmonary embolism. Compression fracture of T4, age-indeterminate. Abdomen/Pelvis CTA 08/23/18 20:18 IMPRESSION: No aortic aneurysm or dissection. No pulmonary embolism. Compression fracture of T4, age-indeterminate. Assessment & Plan - Diagnosis (1) Chest pain Qualifiers: Chest pain type: unspecified Qualified Code(s): R07.9 - Chest pain, unspecified Is this a current diagnosis for this admission?: Yes (2) Left bundle branch block Is this a current diagnosis for this admission?: Yes (3) Anxiety Is this a current diagnosis for this admission?: Yes (4) Hypertensive urgency Is this a current diagnosis for this admission?: Yes - Notes Notes: Chest pain: Patient is elderly lady, is also noted to have new onset left bundle branch block, at least new since 2016, therefore high probability of underlying CAD, to be evaluated further with a nuclear stress test and a 2D echocardiogram. Further plans after these tests are completed. Left bundle branch block pattern: Presumably new since 2016. Further evaluation with pharmacologic nuclear stress test and 2D echocardiogram is being performed. Generalized anxiety disorder: Patient will benefit from SSRI agent and also anxiolytic. Hypertensive urgency: This is a significant problems. Could be related to anxiety panic disorder, underlying sleep apnea syndrome, renal artery stenosis etc. may need to be ruled out. At this point recommend blood pressure goal of 140/90 or less. - Time Time Spent: 30 to 50 Minutes - CODE STATUS was discussed, patient remains full code. Surrogate decision-maker unchanged. Multiple medical problems were addressed. More than 50% of the time spent coordinating care, discussing management plans with involved caregivers. Management plans discussed with involved personnels. Medical decision making was of moderate to high complexity , patient's has multiple comorbidities. Medications reviewed and adjusted accordingly: Yes
--- NOTE | 2018-08-26 14:59 | PDOC PROGRESS REPORT ---
Subjective Progress Note for:: 08/26/18 Subjective:: Patient seems to be doing better with gradual improvement. We are having some problem with blood pressure control. Hospitalist asked to advise. Patient denying any PND, orthopnea. Patient denied any sustained palpitations, dizziness, syncope, near syncope. Patient denying any fever chills. Patient denying any other significant discomfort. Patient is maintaining sinus rhythm. Review of systems: Rest review of systems negative. Medications: Medications have been reviewed. Reason For Visit: HTN URGENCY,HYPONATREMIA Physical Exam Vital Signs: Temp Pulse Resp BP Pulse Ox 98.1 F 69 20 152/64 H 95 08/26/18 12:59 08/26/18 12:59 08/26/18 12:59 08/26/18 12:59 08/26/18 12:59 Intake & Output 08/25/18 08/26/18 08/27/18 06:59 06:59 06:59 Intake Total 1568 237 Output Total 1150 600 Balance 418 -363 Weight 61.6 kg Exam: GENERAL: well-nourished and in no acute distress. Alert and oriented x3 HEAD: Atraumatic, normocephalic. EYES: Pupils equal round and reactive to light, extraocular movements intact, sclera anicteric, conjunctiva are normal. ENT: TMs normal, nares patent, oropharynx clear without exudates. Moist mucous membranes. No oral ulcerations or bleeding gums noted NECK: supple without lymphadenopathy. Trachea is central. No cervical or axillary lymphadenopathy noted. Carotids are 2+, JVD WNL LUNGS: Respiration seems nonlabored, no significant accessory muscle action noted. Breath sounds clear to auscultation bilaterally and equal noted. No wheezes rales or rhonchi noted. No significant dullness noted on percussion. CHEST: Palpation of the chest wall shows no significant chest wall tenderness. 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 ABDOMEN: Soft, no significant tenderness appreciated, normoactive bowel sounds. No guarding, no rebound. No rigidity noted . No masses appreciated. EXTREMITIES: Pedal pulses are 1-2+, no calf tenderness noted. No clubbing or cyanosis. negative pedal edema noted NEUROLOGICAL: Focused neurological exam showed no significant neurologic deficit. Normal speech, no focal weakness appreciated. PSYCH: Normal mood, normal affect. Judgment and insight within normal limits. SKIN: No significant ecchymosis, skin is noted to be warm. MUSCULOSKELETAL EXAM: No significant acute joint swelling noted. Results Laboratory Results: 08/26/18 04:42 08/25/18 08/26/18 08/26/18 22:10 04:42 09:15 Sodium 125.0 L 130.6 L Potassium 3.4 L 3.9 Chloride 91 L 94 L Carbon Dioxide 26 28 Anion Gap 8 9 BUN 14 12 Creatinine 0.67 0.68 Est GFR ( Amer) > 60 > 60 Est GFR (Non-Af Amer) > 60 > 60 Glucose 108 104 Calcium 8.2 L 8.4 Stool Occult Blood NEGATIVE 08/26/18 04:42 Troponin I 0.014 NT-Pro-B Natriuret Pep 603 H EKG Comments: Shows sinus rhythm with left bundle branch block pattern. No acute ST-T wave changes are noted. Impressions: Chest X-Ray 08/23/18 18:52 IMPRESSION: NO ACUTE RADIOGRAPHIC FINDING IN THE CHEST. Chest/Abdomen CTA 08/23/18 20:17 IMPRESSION: No aortic aneurysm or dissection. No pulmonary embolism. Compression fracture of T4, age-indeterminate. Abdomen/Pelvis CTA 08/23/18 20:18 IMPRESSION: No aortic aneurysm or dissection. No pulmonary embolism. Compression fracture of T4, age-indeterminate. Head CT 08/25/18 00:00 IMPRESSION: MILD CHRONIC CHANGES OF ATROPHY AND MICROVASCULAR ISCHEMIA. NO ACUTE PROCESS. EVIDENCE OF ACUTE STROKE: NO. Assessment & Plan - Diagnosis (1) Hypertension Qualifiers: Hypertension type: essential hypertension Qualified Code(s): I10 - Essential (primary) hypertension Is this a current diagnosis for this admission?: Yes (2) Left bundle branch block Is this a current diagnosis for this admission?: Yes (3) Hypertensive urgency Is this a current diagnosis for this admission?: Yes (4) Nausea and vomiting Qualifiers: Vomiting type: unspecified Vomiting Intractability: unspecified Qualified Code(s): R11.2 - Nausea with vomiting, unspecified Is this a current diagnosis for this admission?: Yes (5) Chest pain Qualifiers: Chest pain type: unspecified Qualified Code(s): R07.9 - Chest pain, unspecified Is this a current diagnosis for this admission?: Yes - Notes Notes: Severe hypertension: Blood pressure has been noted to be significantly elevated intermittently. Patient also noted to be mildly bradycardic at times. At this point have recommended these changes which the hospitalist has put in. Patient to be placed on carvedilol 25 mg p.o. daily, Lasix 20 mg p.o. daily. May use clonidine 0.1 mg as needed for systolic blood pressure over 180. At patient's age, blood pressure below 150/90 would be acceptable. Discussed various medication for control of severe hypertension. Chlorthalidone is preferred diuretics but patient has hyponatremia therefore was not used. Could use spironolactone. Continue other medications. Chest pain: This was evaluated with nuclear stress test which was noted to be negative. Hypertension: Changes made. Left bundle branch block pattern: Chronic. Further evaluation may become needed if there are new symptoms. Nausea and vomiting: Currently resolved. Patient to report any worsening. - Time Time with patient: Greater than 35 minutes - CODE STATUS was discussed, patient remains full code. Surrogate decision-maker unchanged. Multiple medical problems were addressed. More than 50% of the time spent coordinating care, discussing management plans with involved caregivers. Management plans discussed with involved personnels. Medical decision making was of moderate to high complexity, patient's has multiple comorbidities. Multiple medication changes performed which were discussed with hospitalist and these were subsequently placed as ordered by the hospitalist. Medications reviewed and adjusted accordingly: Yes
[2018-08-26] MEDS ORDERED: CLONIDINE HCL 0.1 MG TABLET PO PRN (15:44)
--- NOTE | 2018-08-26 15:50 | PDOC PROGRESS REPORT ---
Subjective Progress Note for:: 08/26/18 Subjective:: The patient is a 78-year-old female with a past medical history of anxiety, hypertension, and sciatic back pain who was admitted 08/23/18 for Hypertensive urgency and chest pain rule out. The patient was seen on morning rounds. She is found resting in bed comfortably on room air. She reports a mild frontal headache that is persisted since yesterday, however, notes that it is improved. She reports that her occipital headache has resolved. She is occasionally nauseated but believes this to be indigestion and has not had any further episodes of emesis. Overall , she reports that she is feeling much better. She denies fever, chills, dizziness, chest pain, palpitations, dyspnea, orthopnea, abdominal pain, nausea/vomiting, diarrhea or constipation. She has no new questions or concerns at this time. No concerns per nursing. Reason For Visit: HTN URGENCY,HYPONATREMIA Physical Exam Vital Signs: Temp Pulse Resp BP Pulse Ox 98.1 F 80 20 152/64 H 95 08/26/18 12:59 08/26/18 14:00 08/26/18 12:59 08/26/18 12:59 08/26/18 12:59 Intake & Output 08/25/18 08/26/18 08/27/18 06:59 06:59 06:59 Intake Total 1568 237 Output Total 1150 600 Balance 418 -363 Weight 61.6 kg General appearance: PRESENT: no acute distress, well-developed, well-nourished Head exam: PRESENT: atraumatic, normocephalic Eye exam: PRESENT: conjunctiva pink, EOMI, PERRLA. ABSENT: scleral icterus Ear exam: PRESENT: normal external ear exam Mouth exam: PRESENT: moist, tongue midline Neck exam: ABSENT: carotid bruit, JVD, lymphadenopathy, thyromegaly Respiratory exam: PRESENT: clear to auscultation joey. ABSENT: rales, rhonchi, wheezes Cardiovascular exam: PRESENT: RRR. ABSENT: diastolic murmur, rubs, systolic murmur Pulses: PRESENT: normal dorsalis pedis pul Vascular exam: PRESENT: normal capillary refill GI/Abdominal exam: PRESENT: normal bowel sounds, soft. ABSENT: distended, guarding, mass, organolmegaly, rebound, tenderness Rectal exam: PRESENT: deferred Extremities exam: PRESENT: full ROM. ABSENT: calf tenderness, clubbing, pedal edema Neurological exam: PRESENT: alert, awake, oriented to person, oriented to place , oriented to time, oriented to situation, CN II-XII grossly intact, other - Slight forgetfulness. ABSENT: motor sensory deficit Psychiatric exam: PRESENT: appropriate affect, normal mood. ABSENT: homicidal ideation, suicidal ideation Skin exam: PRESENT: dry, intact, warm. ABSENT: cyanosis, rash Results Laboratory Results: 08/26/18 04:42 08/25/18 08/26/18 08/26/18 22:10 04:42 09:15 Sodium 125.0 L 130.6 L Potassium 3.4 L 3.9 Chloride 91 L 94 L Carbon Dioxide 26 28 Anion Gap 8 9 BUN 14 12 Creatinine 0.67 0.68 Est GFR ( Amer) > 60 > 60 Est GFR (Non-Af Amer) > 60 > 60 Glucose 108 104 Calcium 8.2 L 8.4 Stool Occult Blood NEGATIVE 08/26/18 04:42 Troponin I 0.014 NT-Pro-B Natriuret Pep 603 H Impressions: Chest X-Ray 08/23/18 18:52 IMPRESSION: NO ACUTE RADIOGRAPHIC FINDING IN THE CHEST. Chest/Abdomen CTA 08/23/18 20:17 IMPRESSION: No aortic aneurysm or dissection. No pulmonary embolism. Compression fracture of T4, age-indeterminate. Abdomen/Pelvis CTA 08/23/18 20:18 IMPRESSION: No aortic aneurysm or dissection. No pulmonary embolism. Compression fracture of T4, age-indeterminate. Head CT 08/25/18 00:00 IMPRESSION: MILD CHRONIC CHANGES OF ATROPHY AND MICROVASCULAR ISCHEMIA. NO ACUTE PROCESS. EVIDENCE OF ACUTE STROKE: NO. Assessment & Plan - Diagnosis (1) Hypertensive urgency Is this a current diagnosis for this admission?: Yes Plan: Blood pressures with slight improvement. Per Cardiology; goal of less than 150/ 90 Discussed with cardiology today; the following recommendations were made and implemented. Metoprolol is discontinued. Start carvedilol 25 mg every 12 hours. Continue lisinopril 40 mg daily. Continue hydralazine 25 mg p.o. every 8 hours. Start furosemide 20 mg daily (likely will increase water output greater ratio within sodium and over time may contribute to improved hyponatremia while obtaining BP control). Clonidine 0.1 mg as needed for SBP>180 (2) Left bundle branch block Is this a current diagnosis for this admission?: Yes Plan: The left bundle branch block noted on EKG; chronic in nature per cardiology. Previous EKG from 2012 was normal sinus rhythm. Head CT is benign. Troponins negative x5. Lipid panel is acceptable. TSH is normal. Stress test was completed; no evidence of acute reversible ischemia. Echocardiogram demonstrated LVEF >60% with mild diastolic dysfunction. Cardiology has been consulted; appreciate their evaluation recommendations. (3) Hypertension Qualifiers: Hypertension type: essential hypertension Qualified Code(s): I10 - Essential (primary) hypertension Is this a current diagnosis for this admission?: Yes Plan: As above. (4) Anxiety Is this a current diagnosis for this admission?: Yes Plan: Prozac dose decreased from 40 to 20 mg daily secondary to hyponatremia. Trazadone discontinued r/t hyponatremia. Start BuSpar twice daily.. (5) Nausea and vomiting Qualifiers: Vomiting type: unspecified Vomiting Intractability: unspecified Qualified Code(s): R11.2 - Nausea with vomiting, unspecified Is this a current diagnosis for this admission?: Yes Plan: Improved; likely secondary to headache and hypertension. Pt initially reported nausea and vomiting related to Cardiolite injection; responded will to phenergan. However, she continues to have mild nausea without emesis today. As needed Zofran for symptom management. Diet as tolerated. (6) Headache Qualifiers: Headache type: unspecified Headache chronicity pattern: acute headache Is this a current diagnosis for this admission?: Yes Plan: Improved; continues to have a mild persistent frontal headache. Yesterday, the patient reported frontal and occipital headache, unlike her normal headaches, not associated with photophobia or phonophobia. Neuroexam unremarkable. However, given the associated nausea/vomiting, forgetfulness/repetitiveness (initially presumed to be related to phenergan, though last dose ~12 hours ago), hyponatremia, and severe hypertension, a stat non-contrasted head CT was obtained. Fortunately, this was benign other than mucosal thickening of the left maxillary sinus. BP management as above. Flonase twice daily. Antiemetics and analgesics for symptom control. (7) Hyponatremia Is this a current diagnosis for this admission?: Yes Plan: Improved; 134.7--> 12.09--> 127.5--> 130.6 Chronic hyponatremia, likely secondary to medications. Has no returned to baseline. Has received ~2L NS; fluids have been discontinued. Medications reviewed and discontinued/decreased as able. Urine Osmo 361, Urine Na 100. TSH and AM Cortisol are normal. Discussed with cardiology; recommends furosemide. Serial chemistries. - Time Time Spent with patient: 15-24 minutes Medications reviewed and adjusted accordingly: Yes Anticipated discharge: Home Within: within 24 hours - If appropriate BP control is maintained overnight.
[2018-08-26] MEDS: MAG HYDROX/AL HYDROX/SIMETH SUSP 30 ML UDCUP PO PRN (18:40)
[2018-08-26] MEDS: NITROGLYCERIN 0.4 MG/TAB 25 TAB/BOTTLE SL PRN ×2 (19:52→20:00)
[2018-08-26] MEDS: ACETAMINOPHEN 325 MG TABLET PO PRN (19:52)
[2018-08-26] MEDS: FLUOXETINE HCL 20 MG CAPSULE PO SCH (21:47)
[2018-08-26] MEDS: BUSPIRONE HCL 10 MG TABLET PO SCH (21:48)
[2018-08-26] MEDS: ATORVASTATIN CALCIUM 20 MG TABLET PO SCH (21:48)
[2018-08-26] MEDS: CARVEDILOL 12.5 MG TABLET PO SCH (21:48)
[2018-08-27] MEDS: MAG HYDROX/AL HYDROX/SIMETH SUSP 30 ML UDCUP PO PRN (04:50)
[2018-08-27] MEDS: HYDRALAZINE HCL 25 MG TABLET PO SCH ×2 (05:29→14:11)
[2018-08-27 06:04] LABS: ANION GAP 10 (5-19); BLOOD UREA NITROGEN 11 mg/dL (7-20); CALCIUM 8.6 mg/dL (8.4-10.2); CARBON DIOXIDE 27 mmol/L (22-30); CHLORIDE 99 mmol/L (98-107); GLUCOSE 103 mg/dL (75-110); POTASSIUM 3.9 mmol/L (3.6-5.0); SODIUM 136.4 mmol/L (137-145)
[2018-08-27] MEDS: LANSOPRAZOLE 30 MG TAB.RAP.DR PO SCH (08:34)
[2018-08-27] MEDS: ENOXAPARIN SODIUM INJ 60 MG/0.6 ML DISP.SYRIN SUBCUT SCH (09:26)
[2018-08-27] MEDS: FLUTICASONE NASAL SPRAY 50 MCG/SPRY 120 SPRAY/16 GM NASL SCH (09:26)
[2018-08-27] MEDS: LISINOPRIL 10 MG TABLET PO SCH (09:27)
[2018-08-27] MEDS: DOCUSATE SODIUM 100 MG CAPSULE PO SCH (09:27)
[2018-08-27] MEDS: BUSPIRONE HCL 10 MG TABLET PO SCH (09:27)
[2018-08-27] MEDS: CARVEDILOL 12.5 MG TABLET PO SCH (09:27)
[2018-08-27] MEDS: ASPIRIN 81 MG TABLET, ENT COATED PO SCH (09:27)
[2018-08-27] MEDS ORDERED: FUROSEMIDE 20 MG TABLET PO SCH (10:00)
[2018-08-27] MEDS ORDERED: LORAZEPAM 0.5 MG TABLET SL PRN (11:27)
--- NOTE | 2018-08-27 15:35 | PDOC PROGRESS REPORT ---
Subjective Progress Note for:: 08/27/18 Subjective:: Patient seems to be doing better with gradual improvement. We are having some problem with blood pressure control. Patient had a episode where she felt hot and flushed all over the body along with marked elevation of blood pressure. Patient claims to have been visibly very anxious and currently under significant stress. Patient denying any PND, orthopnea. Patient denied any sustained palpitations, dizziness, syncope, near syncope. Patient denying any fever chills. Patient denying any other significant discomfort. Patient is maintaining sinus rhythm. Review of systems: Rest review of systems negative. Medications: Medications have been reviewed. Reason For Visit: HTN URGENCY,HYPONATREMIA Physical Exam Vital Signs: Temp Pulse Resp BP Pulse Ox 98.3 F 73 20 142/68 H 94 08/27/18 07:39 08/27/18 14:00 08/27/18 07:39 08/27/18 07:39 08/27/18 07:39 Intake & Output 08/26/18 08/27/18 08/28/18 06:59 06:59 06:59 Intake Total 1568 1237 Output Total 1150 600 Balance 418 637 Weight 61.6 kg 60.7 kg Exam: GENERAL: well-nourished and in no acute distress. Alert and oriented x3 HEAD: Atraumatic, normocephalic. EYES: Pupils equal round and reactive to light, extraocular movements intact, sclera anicteric, conjunctiva are normal. ENT: TMs normal, nares patent, oropharynx clear without exudates. Moist mucous membranes. No oral ulcerations or bleeding gums noted NECK: supple without lymphadenopathy. Trachea is central. No cervical or axillary lymphadenopathy noted. Carotids are 2+, JVD WNL LUNGS: Respiration seems nonlabored, no significant accessory muscle action noted. Breath sounds clear to auscultation bilaterally and equal noted. No wheezes rales or rhonchi noted. No significant dullness noted on percussion. CHEST: Palpation of the chest wall shows no significant chest wall tenderness. 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 ABDOMEN: Soft, no significant tenderness appreciated, normoactive bowel sounds. No guarding, no rebound. No rigidity noted . No masses appreciated. EXTREMITIES: Pedal pulses are 1-2+, no calf tenderness noted. No clubbing or cyanosis. negative pedal edema noted NEUROLOGICAL: Focused neurological exam showed no significant neurologic deficit. Normal speech, no focal weakness appreciated. PSYCH: Normal mood, normal affect. Judgment and insight within normal limits. SKIN: No significant ecchymosis, skin is noted to be warm. MUSCULOSKELETAL EXAM: No significant acute joint swelling noted. Results Laboratory Results: 08/27/18 04:21 08/27/18 04:21 Sodium 136.4 L Potassium 3.9 Chloride 99 Carbon Dioxide 27 Anion Gap 10 BUN 11 Creatinine 0.62 Est GFR ( Amer) > 60 Est GFR (Non-Af Amer) > 60 Glucose 103 Calcium 8.6 08/26/18 04:42 Troponin I 0.014 NT-Pro-B Natriuret Pep 603 H Impressions: Chest X-Ray 08/23/18 18:52 IMPRESSION: NO ACUTE RADIOGRAPHIC FINDING IN THE CHEST. Chest/Abdomen CTA 08/23/18 20:17 IMPRESSION: No aortic aneurysm or dissection. No pulmonary embolism. Compression fracture of T4, age-indeterminate. Abdomen/Pelvis CTA 08/23/18 20:18 IMPRESSION: No aortic aneurysm or dissection. No pulmonary embolism. Compression fracture of T4, age-indeterminate. Head CT 08/25/18 00:00 IMPRESSION: MILD CHRONIC CHANGES OF ATROPHY AND MICROVASCULAR ISCHEMIA. NO ACUTE PROCESS. EVIDENCE OF ACUTE STROKE: NO. Assessment & Plan - Diagnosis (1) Hypertension Qualifiers: Hypertension type: essential hypertension Qualified Code(s): I10 - Essential (primary) hypertension Is this a current diagnosis for this admission?: Yes (2) Left bundle branch block Is this a current diagnosis for this admission?: Yes (3) Hypertensive urgency Is this a current diagnosis for this admission?: Yes (4) Nausea and vomiting Qualifiers: Vomiting type: unspecified Vomiting Intractability: unspecified Qualified Code(s): R11.2 - Nausea with vomiting, unspecified Is this a current diagnosis for this admission?: Yes (5) Chest pain Qualifiers: Chest pain type: unspecified Qualified Code(s): R07.9 - Chest pain, unspecified Is this a current diagnosis for this admission?: Yes (6) Generalized anxiety disorder Is this a current diagnosis for this admission?: Yes - Notes Notes: Severe hypertension, intermittent: Blood pressure has been noted to be significantly elevated intermittently. Possibly related to underlying generalized anxiety disorder. Have ordered Ativan 0.5 mg sublingual every 6 as needed. Side effects discussed. Patient also on Prozac which patient was asked to continue with. Chest pain: This was evaluated with nuclear stress test which was noted to be negative. Hypertension: Medication changes made. Overall control is better. Left bundle branch block pattern: Recent stress test and 2D echo result noted to be satisfactory. No immediate plans for any further workup but further evaluation may become needed if there are new symptoms. Nausea and vomiting: Currently resolved. Patient to report any worsening. - Time Time with patient: 15-25 minutes - CODE STATUS was discussed, patient remains full code. Surrogate decision-maker unchanged. Multiple medical problems were addressed. More than 50% of the time spent coordinating care, discussing management plans with involved caregivers. Management plans discussed with involved personnels. Medical decision making was of moderate to high complexity , patient's has multiple comorbidities. Medications reviewed and adjusted accordingly: Yes
[2018-08-27 15:36] VITALS: BP 168/68
--- NOTE | 2018-08-27 17:45 | PDOC DISCHARGE SUMMARY ---
General - Admit/Disc Date/PCP Admission Date/Primary Care Provider: 08/25/18 16:18 ANA LAURA PLASCENCIA MD Discharge Date: 08/27/18 - Discharge Diagnosis (1) Hypertensive urgency Is this a current diagnosis for this admission?: Yes Summary: Patient was initially admitted with blood pressures of 214/101. Improved to 168 /68 at time of discharge. Per Cardiology; long-term goal of less than 150/90 Cardiology was consulted for evaluation of her LBBB and persistent hypertension. Improved blood pressure control was obtained through discontinuation of her metoprolol. She was placed on carvedilol 25 mg every 12 hours, lisinopril 40 mg daily, hydralazine 25 mg p.o. every 8 hours, and furosemide 20 mg daily. The patient is educated on the importance of a low sodium diet. She is advised to follow up with her primary care provider within 1 week; she will require further medication adjustments to achieve goal. (2) Left bundle branch block Is this a current diagnosis for this admission?: Yes Summary: The left bundle branch block noted on EKG; chronic in nature per cardiology. Previous EKG from 2011 was normal sinus rhythm. Head CT is benign. Troponins negative x5. Lipid panel is acceptable. TSH is normal. Stress test was completed; no evidence of acute reversible ischemia. Echocardiogram demonstrated LVEF >60% with mild diastolic dysfunction. Recommend continue daily aspirin and atorvastatin. Remaining plan as above. (3) Hypertension Is this a current diagnosis for this admission?: Yes (4) Anxiety Is this a current diagnosis for this admission?: Yes Summary: Prozac dose was decreased from 40 to 20 mg daily secondary to hyponatremia. She was also provided prescriptions for BuSpar scheduled twice daily and as needed low-dose Ativan for anxiety. (5) Nausea and vomiting Is this a current diagnosis for this admission?: Yes Summary: Resolved; likely secondary to headache and hypertension. (6) Headache Is this a current diagnosis for this admission?: Yes Summary: Resolved. Head CT revealed mucosal thickening of the left maxillary sinus. She was placed on Flonase twice daily. (7) Hyponatremia Is this a current diagnosis for this admission?: Yes Summary: Improved; 134.7--> 12.09--> 127.5--> 130.6--> 136.4 Chronic hyponatremia, likely secondary to medications. Medications reviewed and discontinued/decreased as able. Urine Osmo 361, Urine Na 100. TSH and AM Cortisol are normal. Discussed with cardiology; recommends furosemide for increased water over sodium excretion which may in time help stabilize her chronic hyponatremia in addition to achieving BP control. - Additional Information Resuscitation Status: Full Code Discharge Diet: Cardiac Discharge Activity: Activity As Tolerated, Balance Activity w/Rest Prescriptions: Aspirin [Ecotrin 81 mg EC Tablet] 81 mg PO DAILY #90 tabec Buspirone HCl [Buspar 10 mg Tablet] 10 mg PO Q12 #60 tablet Carvedilol [Coreg] 1 tab PO Q12 #60 tab Fluoxetine HCl [Prozac 20 mg Capsule] 20 mg PO QHS #30 capsule Fluticasone Propionate [Flonase Nasal [place] 50 Mcg/[place] 16 gm] 2 spray NASL Q12 #1 spray.pump Furosemide [Lasix 20 mg Tablet] 20 mg PO DAILY #30 tablet Hydralazine HCl [Apresoline 25 mg Tablet] 25 mg PO Q8 #90 tablet Lisinopril [Zestril] 40 mg PO DAILY #60 tablet Lorazepam [Ativan 0.5 mg Tablet] 0.5 mg SL Q8HP PRN #12 tablet PRN Reason: Anxiety/Agitation Home Medications: Alendronate Sodium [Fosamax 70 mg Tablet] 70 mg PO CASTILLO 08/24/18 Atorvastatin Calcium [Lipitor 20 mg Tablet] 20 mg PO QHS 08/24/18 Multivitamin [Daily Multiple Vitamin] 1 tab PO DAILY 08/24/18 Omeprazole 40 mg PO DAILY 08/24/18 Acetaminophen [Tylenol 325 mg Tablet] 650 mg PO Q6HP PRN tablet 08/27/18 Aspirin [Ecotrin 81 mg EC Tablet] 81 mg PO DAILY #90 tabec 08/27/18 Atorvastatin Calcium [Lipitor 20 mg Tablet] 20 mg PO QHS tablet 08/27/18 Buspirone HCl [Buspar 10 mg Tablet] 10 mg PO Q12 #60 tablet 08/27/18 Carvedilol [Coreg] 1 tab PO Q12 #60 tab 08/27/18 Fluoxetine HCl [Prozac 20 mg Capsule] 20 mg PO QHS #30 capsule 08/27/18 Fluticasone Propionate [Flonase Nasal [place] 50 Mcg/[place] 16 gm] 2 spray NASL Q12 #1 spray.pump 08/27/18 Furosemide [Lasix 20 mg Tablet] 20 mg PO DAILY #30 tablet 08/27/18 Hydralazine HCl [Apresoline 25 mg Tablet] 25 mg PO Q8 #90 tablet 08/27/18 Lisinopril [Zestril] 40 mg PO DAILY #60 tablet 08/27/18 Lorazepam [Ativan 0.5 mg Tablet] 0.5 mg SL Q8HP PRN #12 tablet 08/27/18 History of Present Illness History of Present Illness: Per H&P by Dr. Delacruz: JERAMY LEBLANC is a 78 year old female with a past medical history of anxiety, hypertension and sciatic back pain. She presents to the emergency room after 2 days of worsening back pain which prompted her to a walk-in medical clinic where she was found to have a blood pressure of 244/ 120. She received clonidine 0.2 resulting in a systolic blood pressure reduction into 170s. She denies recent change of medications and is otherwise felt well. She reports a preceding upsetting conversation with her son followed by headache and chest pain prompting referral to the emergency room. Chest pain was 5 out of 5 lasting 15 minutes left-sided, retrosternal, nonradiating not associated with shortness of breath, palpitations, nausea or vomiting. In the emergency room she has a new left bundle branch block, negative CTA chest, abdomen and CT head. She is referred to the hospitalist for admission. Physical Exam Vital Signs: Temp Pulse Resp BP Pulse Ox 98.3 F 73 20 168/68 H 94 08/27/18 15:40 08/27/18 15:40 08/27/18 15:40 08/27/18 15:40 08/27/18 15:40 Intake & Output 08/26/18 08/27/18 08/28/18 06:59 06:59 06:59 Intake Total 1568 1237 Output Total 1150 600 Balance 418 637 Weight 61.6 kg 60.7 kg General appearance: PRESENT: no acute distress, cooperative, well-developed, well-nourished - Overweight Head exam: PRESENT: atraumatic, normocephalic Eye exam: PRESENT: conjunctiva pink, EOMI, PERRLA. ABSENT: scleral icterus Ear exam: PRESENT: normal external ear exam Mouth exam: PRESENT: moist, tongue midline Neck exam: ABSENT: carotid bruit, JVD, lymphadenopathy, thyromegaly Respiratory exam: PRESENT: clear to auscultation joey. ABSENT: rales, rhonchi, wheezes Cardiovascular exam: PRESENT: RRR. ABSENT: diastolic murmur, rubs, systolic murmur Pulses: PRESENT: normal dorsalis pedis pul Vascular exam: PRESENT: normal capillary refill GI/Abdominal exam: PRESENT: normal bowel sounds, soft. ABSENT: distended, guarding, mass, organolmegaly, rebound, tenderness Rectal exam: PRESENT: deferred Extremities exam: PRESENT: full ROM. ABSENT: calf tenderness, clubbing, pedal edema Neurological exam: PRESENT: alert, awake, oriented to person, oriented to place , oriented to time, oriented to situation, CN II-XII grossly intact, other - Somewhat forgetful and easily confused. ABSENT: motor sensory deficit Psychiatric exam: PRESENT: appropriate affect, normal mood. ABSENT: homicidal ideation, suicidal ideation Skin exam: PRESENT: dry, intact, warm. ABSENT: cyanosis, rash Results Laboratory Results: 08/27/18 04:21 08/27/18 04:21 Sodium 136.4 L Potassium 3.9 Chloride 99 Carbon Dioxide 27 Anion Gap 10 BUN 11 Creatinine 0.62 Est GFR ( Amer) > 60 Est GFR (Non-Af Amer) > 60 Glucose 103 Calcium 8.6 08/26/18 04:42 Troponin I 0.014 NT-Pro-B Natriuret Pep 603 H Impressions: Chest X-Ray 08/23/18 18:52 IMPRESSION: NO ACUTE RADIOGRAPHIC FINDING IN THE CHEST. Chest/Abdomen CTA 08/23/18 20:17 IMPRESSION: No aortic aneurysm or dissection. No pulmonary embolism. Compression fracture of T4, age-indeterminate. Abdomen/Pelvis CTA 08/23/18 20:18 IMPRESSION: No aortic aneurysm or dissection. No pulmonary embolism. Compression fracture of T4, age-indeterminate. Head CT 08/25/18 00:00 IMPRESSION: MILD CHRONIC CHANGES OF ATROPHY AND MICROVASCULAR ISCHEMIA. NO ACUTE PROCESS. EVIDENCE OF ACUTE STROKE: NO. Qualifiers - * PATIENT BEING DISCHARGED WITH ANY OF THE FOLLOWING DIAGNOSIS: No Plan Discharge Plan: Discharged to home. Follow up with primary care provider within 1 week. Time Spent: Less than 30 Minutes
== END 2018-08-27 16:15 | disposition home or self-care (01) | DRG 305 ==
LOC: ER 17:20 → INTOOBSV 22:46 → EH 22:46 → 4N 08-24 00:22 → OBSVTOIN 08-25 16:18
PROVIDERS: ADMIT Internal Medicine; ATTEND Internal Medicine
DX: I16.0 Hypertensive urgency (principal); E87.1 Hypo-osmolality and hyponatremia; E78.5 Hyperlipidemia, unspecified; I10 Essential (primary) hypertension; J44.9 Chronic obstructive pulmonary disease, unspecified; K21.9 Gastro-esophageal reflux disease without esophagitis; M54.30 Sciatica, unspecified side; I44.7 Left bundle-branch block, unspecified; R51 Headache; R07.9 Chest pain, unspecified; R00.1 Bradycardia, unspecified; F41.1 Generalized anxiety disorder; Z88.2 Allergy status to sulfonamides; Z88.8 Allergy status to other drugs, medicaments and biological substances; Z82.49 Family history of ischemic heart disease and other diseases of the circulatory system; Z90.710 Acquired absence of both cervix and uterus; Z87.891 Personal history of nicotine dependence; Z79.899 Other long term (current) drug therapy; Z79.82 Long term (current) use of aspirin
CPT/HCPCS: 36415; 70450; 71046; 71275; 74174; 78452; 80048; 80053; 80061; 81001; 82272; 82533; 82550; 82553; 83880; 83935; 84300; 84443; 84484; 85025; 85027; 87086; 93005; 93010; 93017; 93306; 99285; A9500; G0378; J0360; J1650; J1885; J2270; J2405; J2550; J2785; J3490; J7030; Q9969

== ENCOUNTER 2019-02-04 23:29 | Emergency (ER) | payer MEDICARE, OTHER ==
[2019-02-04] MEDS ORDERED: MANNITOL 25% INJ 12.5 GM/50 ML VIAL IV ONE (23:35)
[2019-02-04] MEDS ORDERED: NORMAL SALINE 1000 ML 1,000 ML IV ONE (23:35)
[2019-02-04 23:47] LABS: ABSOLUTE BASOPHILS # (AUTO) 0.1 10^3/uL (0.0-0.2); ABSOLUTE EOSINOPHILS # (AUTO) 0.2 10^3/uL (0.0-0.6); ABSOLUTE LYMPHOCYTES (AUTO) 1.7 10^3/uL (0.5-4.7); ABSOLUTE MONOCYTES (AUTO) 0.8 10^3/uL (0.1-1.4); ABSOLUTE NEUT (AUTO) 8.1 10^3/uL (1.7-8.2); EOSINOPHILS % (AUTO) 1.7 % (0-6); HEMATOCRIT 30.5 % (36.0-47.0); HEMOGLOBIN 10.5 g/dL (12.0-15.5); LYMPHOCYTES % (AUTO) 15.5 % (13-45); MEAN CORPUSCULAR HEMOGLOBIN 31.8 pg (27.0-33.4); MEAN CORPUSCULAR HGB CONC 34.4 g/dL (32.0-36.0); MEAN CORPUSCULAR VOLUME 93 fl (80-97); MONOCYTES % (AUTO) 6.9 % (3-13); PLATELET COUNT 303 10^3/uL (150-450); RED CELL DISTRIBUTION WIDTH 13.2 % (11.5-14.0); SEGMENTED NEUTROPHILS % (AUTO) 74.9 % (42-78); TOTAL CELLS COUNTED % (AUTO) 100 %; WHITE BLOOD COUNT 10.9 10^3/uL (4.0-10.5)
[2019-02-04] MEDS ORDERED: LEVETIRACETAM 1500 MG/NACL-ISO 1,500 MG/100 ML RTUPB IV ONE (23:47)
[2019-02-04] MEDS ORDERED: NICARDIPINE HCL RTU, ISO-OS 20 MG/200 ML RTUINJ IV PRN (23:50)
--- NOTE | 2019-02-04 23:54 | ER Document Report ---
ED General - General Stated Complaint: UNRESPONSIVE Time Seen by Provider: 02/04/19 23:35 Primary Care Provider: ANN PLASCENCIA MD [Primary Care Provider] - Follow up as needed Cannot obtain history due to: Intubated, Altered mental status Notes: Patient is a 78-year-old female who presents intubated, obtunded. Apparently complained of a headache to her son at approximately 2200, 10 minutes thereafter was found to be completely unresponsive. EMS was called, found patient to be saturating in the 70s, unequal pupils, no response to noxious stimuli, intubated for airway protection and ventilatory support. No other history can be obtained secondary to the patient's mental status and intubated status at time of presentation. TRAVEL OUTSIDE OF THE [place] IN LAST 30 DAYS: No - Related Data Allergies/Adverse Reactions: amlodipine [Amlodipine] Allergy (Verified 02/05/19 00:56) meclizine [Meclizine] Allergy (Verified 02/05/19 00:56) naproxen [From Naprosyn] Allergy (Verified 02/05/19 00:56) sulfamethoxazole [From Bactrim] Allergy (Verified 02/05/19 00:56) tramadol [Tramadol] Allergy (Verified 02/05/19 00:56) trimethoprim [From Bactrim] Allergy (Verified 02/05/19 00:56) Past Medical History - General Information source: Emergency Med Personnel, [facility] Records Cannot obtain history due to: Intubated, Altered mental status - Social History Smoking Status: Unknown if Ever Smoked Lives with: Family Family History: Hypertension - Past Medical History Cardiac Medical History: Reports: Hx Hypercholesterolemia, Hx Hypertension Pulmonary Medical History: Reports: Hx COPD, Hx Pneumonia Renal/ Medical History: Denies: Hx Peritoneal Dialysis GI Medical History: Reports: Hx Gastroesophageal Reflux Disease Psychiatric Medical History: Reports: Hx Anxiety, Hx Depression Past Surgical History: Reports: Hx Hysterectomy - Immunizations Hx Diphtheria, Pertussis, Tetanus Vaccination: Yes Hx Pneumococcal Vaccination: 11/14/15 Review of Systems - Review of Systems -: Yes ROS unobtainable due to patient's medical condition Physical Exam - Vital signs Vitals: Resp Pulse Ox 11 L 99 02/04/19 23:30 02/04/19 23:30 Notes: PHYSICAL EXAMINATION: GENERAL: Obtunded, intubated HEAD: Atraumatic, normocephalic. EYES: Pupils 5 mm, unreactive bilaterally. Fixed. ENT: nares patent, ET tube in position NECK: supple without lymphadenopathy LUNGS: Bilateral breath sounds with bagging through the tracheal tube. HEART: Regular tachycardia ABDOMEN: Soft, No masses appreciated. EXTREMITIES:no pitting or edema. No cyanosis. NEUROLOGICAL: GCS 3 T. No pupillary response, no corneal reflex, negative cough, positive gag on initial exam. No response to noxious stimuli in any extremity. PSYCH: Obtunded, intubated SKIN: Warm, Dry, normal turgor, no rashes or lesions noted. Course - Re-evaluation Re-evalutation: 02/04/19 23:48 Documentation is delayed as I been at this patient's bedside continuously since she arrived. In summary this patient arrives obtunded, intubated in the field after being found unresponsive, unequal pupils, no response to noxious stimuli after apparently complaining to her son of a severe headache at approximate 2200. At time of arrival the patient has last received a paralytic 30 minutes ago. Her initial neurologic exam shows no corneal reflex, no pupillary response of the pupils are noted to be equal. She has no cough but does have a gag reflex. She has no response to noxious stimuli in any extremity. She will medially go for CT of the head and cervical spine does have a very high index of suspicion that the patient has a large intracranial bleed. Patient is not currently on any sedative. Will begin seizure prophylaxis with levetiracetam as well as ICP reduction with mannitol. 02/04/19 23:51 CT shows a very substantial brainstem bleed. Mannitol will now be initiated. Patient will be started on nicardipine infusion for blood pressure regulation with systolic target of less than 140. Will discuss with the family now. 02/05/19 00:12 I had an extended conversation with the patient's son. We did review that the p atient has expressed direct wishes that under no circumstances she to undergo correct measures and she would not want to be intubated as she is currently. He states that the patient is stated repeatedly "if something bad happens let me go in peace". I did review that the patient will quickly upon extubation given that she has no respiratory effort likely secondary to current or imminent brain . The patient no longer has a gag reflex. Her repeat neuro exam continues to be consistent with brain without any pupillary reflex, no corneal reflex, no gag, no cough, no response to noxious stimuli. The patient is also apneic without any spontaneous ventilatory effort. At this point after this conversation with the patient's son we will proceed with comfort measures. The patient will be administered 8 mg of morphine, glycopyrrolate 2 mg intramuscularly. Patient will then be extubated with expectant care. 02/05/19 00:47 Remain at this patient's bedside continuously for the past 30 minutes. After extubation the patient did begin to have some spontaneous respirations which were agonal in nature. We did provide multiple doses of morphine to alleviate any evidence of respiratory distress or discomfort. Son remained at bedside. Will continue to monitor and ensure that the patient remains comfortable. 02/05/19 01:14 Patient continues with very agonal respirations. Will continue to monitor closely. 02/05/19 02:06 Patient continues to maintain agonal respirations we continue to administer morphine as needed for apparent signs of air hunger or breathing with disco mfort. Son remains at the bedside. If patient continues to have cardiac activity and spontaneous breathing will discuss with the hospitalist for admission on comfort measures. 02/05/19 03:42 Patient is continued to remain clinically unchanged. I have discussed this case with the hospitalist on-call who has requested that we continue to monitor the patient here in the emergency department and if she continues to survive until after 6 in the morning the hospitalist service will agree to hospitalize at that time. I did discuss his care plan with Dr. Kay the ER physician I am working with currently who agrees to contact the hospitalist service in the morning to the patient continued to be alive. Son is aware of this plan, comfortable. - Vital Signs Vital signs: Temp Pulse Resp BP Pulse Ox 12 88/54 L 77 L 02/05/19 02:00 02/05/19 00:46 02/05/19 02:00 - Laboratory Result Diagrams: 02/04/19 23:30 02/04/19 23:30 Laboratory results interpreted by me: 02/04/19 02/04/19 23:30 23:30 WBC 10.9 H RBC 3.30 L Hgb 10.5 L Hct 30.5 L Sodium 135.3 L Potassium 5.1 H BUN 23 H Est GFR (Non-Af Amer) 49 L Glucose 134 H Total Protein 6.2 L - Diagnostic Test Radiology reviewed: Image reviewed, Reports reviewed Radiology results interpreted by me: 02/05/19 02:07 CT head: Large bleed centered in the chantal 02/05/19 02:07 Chest x-ray: No acute infiltrate or pneumothorax, ET tube in appropriate position. Critical Care Note - Critical Care Note Total time excluding time spent on procedures (mins): 85 Comments: Critical care time spent obtaining history from patient or surrogate, development of treatment plan with patient or surrogate, evaluation of patient's response to treatment, examination of patient, ordering and performing treatments and interventions, ordering and review of laboratory studies, re- evaluation of patient's condition, ordering and review of radiographic studies and review of old charts Discharge - Discharge Clinical Impression: Intracranial hemorrhage, Essential hypertension Altered mental status Qualifiers: Altered mental status type: coma Coma depth: Robert coma 3-8 Coma timing: in the field (EMT or ambulance) Qualified Code(s): R40.2431 - [place] coma scale score 3-8, in the field [EMT or ambulance] Condition: Critical Referrals: ANN PLASCENCIA MD [Primary Care Provider] - Follow up as needed
[2019-02-04 23:56] LABS: INTERNATIONAL RATION (INR) 0.93; PARTIAL THROMBOPLASTIN TIME 25.4 SEC (23.5-35.8); PROTHROMBIN TIME 12.9 SEC (11.4-15.4)
--- NOTE | 2019-02-04 23:57 | RADIOLOGY REPORT (SQ) ---
EXAM DESCRIPTION: XR CHEST 1 VIEW COMPLETED DATE/TME: 02/04/2019 00:00 CLINICAL HISTORY: 78 years, Female, UNRESPONSIVE, INTUBATED COMPARISON: 08/16/2016 chest NUMBER OF VIEWS: 1 TECHNIQUE: Portable chest LIMITATIONS: None. FINDINGS: Heart size normal. Atheromatous change and ectasia of the thoracic aorta. Endotracheal tube with the tip 3.6 cm above the colin. Enteric tube also in place. No pneumothorax. Osteopenia. Subsegmental atelectasis left lung base. IMPRESSION: Endotracheal and enteric tubes in place. Subsegmental atelectasis left lung base. copyright 2010 [employer]- All Rights Reserved
[2019-02-05 00:02] LABS: ALANINE AMINOTRANSFERASE 29 U/L (9-52); ALBUMIN 3.6 g/dL (3.5-5.0); ALKALINE PHOSPHATASE 87 U/L (38-126); ANION GAP 9 (5-19); ASPARTATE AMINO TRANSFERASE 27 U/L (14-36); BILIRUBIN,DIRECT 0.2 mg/dL (0.0-0.4); BILIRUBIN,TOTAL 0.4 mg/dL (0.2-1.3); BLOOD UREA NITROGEN 23 mg/dL (7-20); CALCIUM 8.7 mg/dL (8.4-10.2); CARBON DIOXIDE 28 mmol/L (22-30); CHLORIDE 98 mmol/L (98-107); GLUCOSE 134 mg/dL (75-110); POTASSIUM 5.1 mmol/L (3.6-5.0); SODIUM 135.3 mmol/L (137-145); TOTAL PROTEIN 6.2 g/dL (6.3-8.2)
--- NOTE | 2019-02-05 00:05 | RADIOLOGY REPORT (SQ) ---
EXAM DESCRIPTION: CT CERVICAL SPINE WITHOUT IV CONTRAST COMPLETED DATE/TME: 02/04/2019 00:00 CLINICAL HISTORY: 78 years, Female, eval head bleed, unresponsive COMPARISON: None. TECHNIQUE: 243 Images stored on PACS. All CT scanners at this facility use dose modulation, iterative reconstruction, and/or weight based dosing when appropriate to reduce radiation dose to as low as reasonably achievable (ALARA). [facility]: Dose Right [facility]: CareDose [facility]: Dose Right [facility]: Teradose 4D [facility]: Show de [employer] LIMITATIONS: None. FINDINGS: Vertebral body height is preserved. Minor anterolisthesis of C4 on C5 likely degenerative in nature. Diffuse disc space narrowing with endplate degenerative change and facet arthropathy throughout the spine. The atlantoaxial space is preserved. Lateral masses are not displaced. Partial visualization of groundglass opacities in the right lung apex. Endotracheal and enteric tubes are partially seen. IMPRESSION: No CT evidence for acute C-spine abnormality. Other incidental findings as above TECHNICAL DOCUMENTATION: Quality ID # [id number]: Final reports with documentation of one or more dose reduction techniques (e.g., Automated exposure control, adjustment of the mA and/or kV according to patient size, use of iterative reconstruction technique) copyright 2011 [employer]- All Rights Reserved
[2019-02-05] MEDS ORDERED: LEVETIRACETAM INJ/PF 500 MG/5 ML SDV IV ONE (00:07)
[2019-02-05] MEDS ORDERED: MORPHINE SULFATE 10 MG/ML INJ ONE ×6 (00:11→01:27)
[2019-02-05] MEDS ORDERED: GLYCOPYRROLATE INJ 0.4 MG/2 ML VIAL ONE ×2 (00:18→00:21)
--- NOTE | 2019-02-05 00:24 | RADIOLOGY REPORT (SQ) ---
EXAM DESCRIPTION: CT HEAD WITHOUT IV CONTRAST COMPLETED DATE/TME: 02/04/2019 00:00 CLINICAL HISTORY: 78 years, Female, eval head bleed, unresponsive COMPARISON: None Available. Technique: Contiguous axial images of the brain were obtained without the administration of intravenous contrast. Coronal and sagittal reformats obtained and reviewed. This exam was performed according to our departmental dose-optimization program which includes use of Automated Exposure Control, adjustment of the mA and/or kV according to patient size and/or use of iterative reconstruction technique. Findings: Large intraparenchymal hemorrhage centered within the chantal extending into the third and fourth ventricles. The intraparenchymal hematoma measures approximately 2.1 x 2.4 x 2.2 cm. There is mass effect on the brainstem. Mild diffuse cortical atrophy. Moderate nonspecific white matter changes. Inflammatory changes in the left maxillary sinus. IMPRESSION: Large intraparenchymal hemorrhage centered within the chantal with intraventricular extension into the third and fourth ventricles.
[2019-02-05] MEDS ORDERED: GLYCOPYRROLATE INJ 0.4 MG/2 ML VIAL IM ONE (00:27)
[2019-02-05] MEDS ORDERED: MORPHINE SULFATE 10 MG/ML INJ IV ONE ×2 (01:52)
[2019-02-05] MEDS: MORPHINE SULFATE 10 MG/ML INJ IV PRN ×2 (02:04→05:02)
[2019-02-05 02:40] VITALS: BP 88/54
== END 2019-02-05 06:20 | disposition expired ==
LOC: ER 23:29
DX: I61.3 Nontraumatic intracerebral hemorrhage in brain stem (principal); R41.82 Altered mental status, unspecified; I10 Essential (primary) hypertension; J44.9 Chronic obstructive pulmonary disease, unspecified; R06.09 Other forms of dyspnea; Z88.8 Allergy status to other drugs, medicaments and biological substances; Z88.1 Allergy status to other antibiotic agents; Z88.5 Allergy status to narcotic agent
CPT/HCPCS: 96376; 99291; 99292; 96372; 51702; 96374; 36415; 85025; 85610; 85730; 80053; 84484; 71045; 70450; 72125; 94660; J2270